=== PATIENT | female | born 1970 | race Caucasian/White ===

== ENCOUNTER → 2018-01-31 10:47 | Outpatient (CLI) | payer OTHER, SELFPAY ==
[2018-01-31 11:46] LABS: hCG Titer Quant., Serum 7 mIU/mL (<9 non-preg)
[2018-01-31 11:52] LABS: Progesterone Level 0.28 ng/mL (See Comment)
[2018-01-31 11:54] LABS: Estradiol < 11.0 pg/mL; Follicle Stimulating Hormone 113.1 mIU/mL; Free T3 2.7 pg/mL (2.18-3.98); T4 Free Direct 1.03 ng/dL (0.76-1.46)
[2018-02-02 14:31] LABS: HPV Reflexed? NOT INDICATED
== END ==
PROVIDERS: Family Provider Family Medicine; PCP Family Medicine; Visit Provider Obstetrics & Gynecology
DX: N91.1 Secondary amenorrhea (principal); Z12.4 Encounter for screening for malignant neoplasm of cervix
CPT/HCPCS: 36415; 82670; 83001; 83036; 84144; 84439; 84443; 84481; 84702; 88175; G0145

== ENCOUNTER → 2018-01-31 14:44 | Outpatient (CLI) | payer OTHER, SELFPAY ==
--- NOTE | 2018-01-31 14:49 | BI_ITS ---
MAMMOGRAPHY - BILATERAL SCREENING REASON FOR EXAM: Female, 47 years old. Routine annual screening examination. PERTINENT HISTORY: Non-contributory. TECHNIQUE: Digital bilateral breast julius (3D mammographic acquisition) in the CC and MLO projections. 2-D mediolateral oblique (MLO) and craniocaudad (CC) views of both breasts were obtained. CAD: Full Field Digital Mammography with Computer Added Detection was performed. COMPARISON: Comparison is made with prior study dated January 28, 2015 and June 29, 2016. FINDINGS: Breast Composition: The breasts are heterogeneously dense, which may obscure small masses. There are no dominant masses or suspicious calcifications. Stable bilateral benign-appearing axillary lymph nodes. No other significant abnormalities are identified. There has been no significant change since the prior study. BI/SCREENING MAMM (CAD), BILAT IMPRESSION: Stable bilateral screening mammogram. Yearly follow-up mammogram recommended. (A) ASSESSMENT CATEGORY: BIRADS Category 2: Benign. A letter regarding these results will be sent to the patient by the facility within 30 days. Approximately 10% of breast cancers are not detected by mammography. A normal mammogram should not delay biopsy of a clinically suspicious abnormality. [id number] Electronically Signed: Damian Oliveira MD at 16:05 EDT Tel [phone], Service support ,
== END ==
PROVIDERS: Family Provider Family Medicine; PCP Family Medicine; Visit Provider Obstetrics & Gynecology
DX: Z12.31 Encounter for screening mammogram for malignant neoplasm of breast (principal)
CPT/HCPCS: 77063; 77067

== ENCOUNTER → 2019-04-03 | Outpatient (CLI) | payer OTHER, SELFPAY ==
--- NOTE | 2019-04-03 08:33 | BI_ITS ---
MAMMOGRAPHY - BILATERAL SCREENING 3-D TOMOSYNTHESIS REASON FOR EXAM: Female, 48 years old. Bilateral Screening 3-D tomosynthesis PERTINENT HISTORY: No significant family history. TECHNIQUE: 2-D mammograms and 3-D Tomosynthesis of the breast (s) were performed. CAD was performed. COMPARISON: 01/31/2018 FINDINGS: The breast composition is heterogeneously dense that can obscure small breast masses. Scattered benign calcifications are seen. No dense spiculated masses or suspicious microcalcifications are identified. No architectural distortion is identified. There is no skin thickening or retraction. There has been no significant change since the prior study. BI/SCREEN MAMM (CAD) W/SIRI BILAT IMPRESSION: No mammographic signs of malignancy. Routine yearly mammograms recommended. ASSESSMENT CATEGORY: BIRADS Category 1: Negative. A letter regarding these results will be sent to the patient by the facility within 30 days. FOLLOW UP RECOMMENDATION: Yearly follow up mammogram recommended. (A) Approximately 10% of breast cancers are not detected by mammography. A normal mammogram should not delay biopsy of a clinically suspicious abnormality. Electronically Signed: Obie Alvarez MD at 9:58 EDT , Service support ,
[2019-04-09 14:24] LABS: HPV Reflexed? NOT INDICATED
== END | disposition home or self-care (01) ==
LOC: OPBI 08:31 → LABSPEC 11:05
PROVIDERS: Family Provider Family Medicine; PCP Family Medicine; Referring Provider Obstetrics & Gynecology; Visit Provider Obstetrics & Gynecology
DX: Z12.31 Encounter for screening mammogram for malignant neoplasm of breast (principal); Z12.4 Encounter for screening for malignant neoplasm of cervix
CPT/HCPCS: 77063; 77067; 88175; G0145

== ENCOUNTER 2020-01-16 09:44 | Emergency (ER) | payer OTHER, SELFPAY ==
[2020-01-16 09:45] VITALS: BP 140/92; PULSE 107; RESP 19; TEMP 36.3; O2SAT 100; BMI 29.5
--- NOTE | 2020-01-16 09:48 | NURSING ---
NO OLD EKGS
--- NOTE | 2020-01-16 10:13 | EKG12_ITS ---
Test Reason : CP Blood Pressure : / mmHG Vent. Rate : 096 BPM Atrial Rate : 096 BPM P-R Int : 114 ms QRS Dur : 072 ms QT Int : 338 ms P-R-T Axes : 041 054 031 degrees QTc Int : 427 ms Normal sinus rhythm Normal ECG Confirmed by JEANMARIE DE JESUS MD ([id number]), non linear editor BRYAN SANCHEZ ([id number]) on 01/20/2020 2:57:35 PM Referred By: SUNNI Confirmed By:JEANMARIE DE JESUS MD
[2020-01-16] MEDS: Aspirin 81 MG TAB.CHEW 324 MG PO (10:16)
--- NOTE | 2020-01-16 10:16 | ED.DCSUM_ITS ---
- ER Visit Summary Date of Service: 01/16/20 Chief Complaint: Chest pain History of Present Illness: The patient is a 49 F presenting with chest pain. She states this started 4 days ago. She states pain has been consistent throughout the day each day. States it waxes and wanes but never completely goes away. Currently it is 2/10 at worst it is 4/10. She states it is worsened with eating and coughing. It is relieved by remaining still. Her grandmother had an OR at age 57, no other CAD risk factors. No PE/DVT risk factors. No fever. No recent travel. No other complaints. Physical Examination: Vitals are stable. Patient is afebrile. Alert no acute distress. HEENT exam is unremarkable. Neck is supple. Lungs are clear and equal bilaterally. Heart is regular rate and rhythm. Abdomen is soft nontender nondistended. Extremities are unremarkable. Skin is warm and dry. No focal neurologic deficit. Remainder of exam is unremarkable. Emergency Department Course and Treatment: EKG is normal sinus rhythm rate 96 with no acute ischemic changes. Chest x-ray shows no acute process. CBC, chemistries unremarkable. Liver lipase are normal. Troponin is negative. Patient was given aspirin, GI cocktail. D-dimer 0.63. Due to elevated d-dimer, CTA chest was obtained and shows normal CTA chest examination, without a demonstrated pulmonary embolism or arterial dissection. Delta troponin was obtained and is negative. She was given Toradol IV with improvement. On reevaluation patient is resting comfortably. She does state that she has been under increased stress recently. She is advised to follow-up with her primary c are physician. Advised return to ED for worsening complaints. Disposition: Discharged home Impression: Atypical chest pain This note was generated with [employer] software. It may contain incorrect words, spelling, and punctuation that were not noted in review of the chart prior to signing ED Disposition - Plan for ED Patient: Instructions: ED Chest Pain Atypical Unkn Cause Referrals: Jame Strong DO [COURTESY STAFF PHYSICIAN] - Omid Geronimo MD [STAFF PHYSICIAN] -
[2020-01-16 10:17] VITALS: O2SAT 99
--- NOTE | 2020-01-16 10:25 | RAD_ITS ---
STUDY: X-RAY CHEST REASON FOR EXAM: Female, 49 years old. CP for couple days, pain radiates to left shoulder. TECHNIQUE: Single AP portable view of the chest. COMPARISON: None. FINDINGS: EKG electrodes are seen. The lungs are clear and expanded. There is no demonstrated pleural abnormality. Normal size heart. Normal mediastinum and dayan. Normal visualized pulmonary arteries. Normal visualized aortic arch and descending thoracic aorta. Normal visualized thoracic spine. Normal visualized ribs, clavicles, and shoulders. There is no demonstrated abnormality of the visualized soft tissue structures of the upper abdomen. RAD/Chest 1 View (Portable) IMPRESSION: Normal x-ray examination of the chest. Electronically Signed: Damian Oliveira, at 10:53 EDT , Service support ,
[2020-01-16 10:45] LABS: Absolute Lymphocyte Count 1.72 X10^3/uL (0.83-4.51); Absolute Neutrophil Count 4.7 X10^3/uL (2.0-7.7); Basophil# 0.05 X10^3/uL; Basophil% 0.7 % (0-1); Eosinophils% 2.7 % (0-5); Hematocrit 46.9 % (37-47); Hemoglobin 14.9 g/dL (12.0-15.0); Lymphocyte # 1.72 X10^3/ul (4.0); Lymphocyte % 23.2 % (19-41); Mean Corp Hgb Conc 31.8 g/dL (32-36); Mean Corpuscular Hgb 28.1 pg (27.0-32.0); Mean Corpuscular Volume 88.3 fL (81-99); Mean Platelet Vol. 11.4 fl (6.2-12.0); Monocyte# 0.72 X10^3/uL; Monocyte% 9.7 % (0-10); NRBC Flagged by Analyzer 0 % (0-5); Neutrophil # 4.67 X10^3/uL (2.7-7.7); Neutrophil % 62.9 % (47-70); Platelet Count 309 K/mm3 (150-450); RBC Distribution Width CV 13.1 % (11.6-14.6); RBC Distribution Width SD 41.7 fl (35.1-43.9); Red Blood Count 5.31 M/mm3 (4.2-5.4); White Blood Count 7.4 K/mm3 (4.4-11.0)
[2020-01-16 10:48] LABS: D-Dimer Quantitative (DVT/PE) 0.63 FEU/ug/m (0.27-0.49)
[2020-01-16 10:52] LABS: ALB/GLOB Ratio 0.9 RATIO (0.9-2.4); AST(SGOT) 28 U/L (15-37); Alanine Aminotransfer ALT/SGPT 43 U/L (13-56); Albumin, Serum 3.9 g/dL (3.2-5.0); Alkaline Phosphatase 94 U/L (45-117); Anion Gap 7 (5-15); BUN 12 mg/dL (7-18); BUN/Creat Ratio 14.4 RATIO (10-20); Calcium,Total 9.5 mg/dL (8.5-10.1); Chloride 104 mmol/L (98-107); Creatinine, Serum 0.84 mg/dL (0.55-1.02); EST Glomerular Filtration Rate 77 mL/min (>60); Est Glom Filt Rate - Afr Amer 93 mL/min (>60); Globulin 4.4 g/dL (2.2-4.2); Glucose 85 mg/dL (74-106); Lipase 370 U/L (73-393); Potassium 3.6 mmol/L (3.5-5.1); Protein, Total 8.3 g/dL (6.4-8.2); Sodium Level 140 mmol/L (136-145)
--- NOTE | 2020-01-16 11:15 | CT_ITS ---
STUDY: CTA CHEST REASON FOR EXAM: Female, 49 years old. Elevated ddimer, chest pain RADIATION DOSAGE (If Supplied By Facility): CTDIvol = ( 8.33 ) mGy, DLP = ( 322.09 ) mGycm TECHNIQUE: The examination was performed with the intravenous administration of 100ml isovue 370. Post-processing of the angiographic images was performed, with multiplanar reformation and 3D reconstruction. Individualized dose optimization techniques were used for this CT. COMPARISON: Comparison is made with prior chest radiograph done earlier today. FINDINGS: Normal enhancement of the main pulmonary artery and right and left pulmonary arteries. Normal enhancement of the bilateral peripheral pulmonary arteries. There is no demonstrated pulmonary embolism. Normal thoracic aorta and visualized great vessels. There is no demonstrated aortic dissection. Normal heart and pericardium. Normal mediastinum. Normal hilar regions. Normal visualized trachea and bronchi. The lungs are well expanded. Normal pulmonary parenchyma. Normal pleura. Normal chest wall structures. There are mild degenerative changes of thoracic spine. Small hiatal hernia. CT/CTA Chest W/WO Contrast IMPRESSION: Normal CTA chest examination, without a demonstrated pulmonary embolism or arterial dissection. Electronically Signed: Damian Oliveira, at 12:12 EDT , Service support ,
[2020-01-16 11:25] VITALS: PULSE 93; RESP 18; O2SAT 93
[2020-01-16] MEDS: Mag Hydrox/Al Hydrox/Simeth 30 ML UDC PO (11:25)
[2020-01-16] MEDS: Ketorolac 30 MG/ML Syringe IV (12:44)
--- NOTE | 2020-01-16 13:50 | ED.DEP ---
ED Disposition - Plan for ED Patient: Instructions: ED Chest Pain Atypical Unkn Cause Referrals: Jame Strong DO [COURTESY STAFF PHYSICIAN] - Omid Geronimo MD [STAFF PHYSICIAN] -
[2020-01-16 13:51] VITALS: PULSE 92; RESP 18; O2SAT 98
[2020-01-16 13:58] VITALS: BP 139/88; PULSE 83; RESP 18; O2SAT 98
== END 2020-01-16 14:08 | disposition home or self-care (01) ==
LOC: ED 11:15
PROVIDERS: Emergency Provider Emergency Medicine
DX: R07.89 Other chest pain (principal); R79.89 Other specified abnormal findings of blood chemistry
CPT/HCPCS: 36415; 71045; 71275; 80053; 83690; 84484; 85025; 85379; 93005; 96374; 99285; Q9967; A4216

== ENCOUNTER 2020-01-22 09:04 | Emergency (ER) | payer OTHER, SELFPAY ==
[2020-01-22 09:06] VITALS: BP 142/100; PULSE 98; RESP 18; TEMP 36.6; O2SAT 98; BMI 29.8
--- NOTE | 2020-01-22 09:08 | EKG12_ITS ---
Test Reason : CP Blood Pressure : / mmHG Vent. Rate : 112 BPM Atrial Rate : 112 BPM P-R Int : 116 ms QRS Dur : 080 ms QT Int : 332 ms P-R-T Axes : 066 052 024 degrees QTc Int : 453 ms Sinus tachycardia Otherwise normal ECG Confirmed by JACQUELINE THOMAS ([id number]), communications editor BRYAN SANCHEZ ([id number]) on 01/27/2020 1:27:15 PM Referred By: DENISE Confirmed By:JACQUELINE THOMAS
--- NOTE | 2020-01-22 09:29 | ED.DCSUM_ITS ---
- ER Visit Summary Date of Service: 01/22/20 Chief Complaint: Left upper chest pain History of Present Illness: The patient is a 49 F has medical history of psoriasis and endometriosis. No prior cardiac history. No history of DVT or PE. EKG. Patient states since January 09 she has had left upper chest discomfort. She describes it as a dull burning sensation. Not associated with exertion. No shortness of breath. Not pleuritic in nature. No hemoptysis. No leg pain or swelling. No recent travel, surgery or immobilization. Said she has been less active lately because currently she is off work due to the pandemic. No family history of clotting disorders or blood clots. No significant family history of cardiac disease. She was seen in this emergency department approximately 1 week ago had a negative cardiac work-up with 2- troponins. Negative EKG, negative chest x-ray. She had a slightly elevated d-dimer but a negative CTA. Nothing specifically makes the pain better or worse. She states is been constant. Is not changed by movement. Physical Examination: Middle-aged female no acute distress vital signs stable afebrile. Pulse ox 98% on room air no signs hypoxia. HEENT exam normal. Neck nontender no lymphadenopathy. Lungs clear to auscultation bilaterally. Heart regular rhythm rate about 95 no murmur. Chest wall nontender. There is no reproducible chest wall tenderness. Abdomen soft nontender. Patient moving all 4 extremities. Calves are nontender without edema or cords. Neurologically she is awake and alert with no focal motor deficits. Equal symmetrical radial pulses. Test Results: EKG shows sinus tachycardia rate of 112 with no signs of SD or ischemia. No S1 Q3 T3. No change from prior EKG last week. 1 view chest x-ray read by myself is normal. Normal cardiac silhouette. Normal mediastinum. No change from prior. CBC normal. Chemistries unremarkable. Troponin normal. Emergency Department Course and Treatment: Patient had extensive work-up last week. Including a negative CTA. Discussed with the patient says she has very little risk for PE. Other than her recent decreased activity she has no other risk factors nor family history. She is on no control or hormone replacement. Repeat exam patient is doing well at 9:58 AM. We went over all of her test results. She will be discharged outpatient follow-up. Treatment Plan: Follow-up with your primary care provider. Disposition: wi Impression: Acute chest pain uncertain etiology This note was generated with [employer] dictation software. It may contain incorrect words, spelling, and punctuation that were not noted in review of the chart prior to signing ED Disposition - Plan for ED Patient: Referrals: Care Physician,No Primary [Primary Care Provider] -
[2020-01-22 09:34] VITALS: O2SAT 99
[2020-01-22] MEDS: Aspirin 81 MG TAB.CHEW 324 MG PO (09:34)
[2020-01-22 09:38] LABS: Absolute Neutrophil Count 4.1 X10^3/uL (2.0-7.7); Basophil# 0.07 X10^3/uL; Basophil% 1.1 % (0-1); Eosinophil# 0.27 X10^3/uL; Eosinophils% 4.1 % (0-5); Hematocrit 43.2 % (37-47); Hemoglobin 13.6 g/dL (12.0-15.0); Mean Corp Hgb Conc 31.5 g/dL (32-36); Mean Corpuscular Hgb 27.6 pg (27.0-32.0); Mean Corpuscular Volume 87.6 fL (81-99); Mean Platelet Vol. 10.7 fl (6.2-12.0); Monocyte# 0.57 X10^3/uL; Monocyte% 8.7 % (0-10); NRBC Flagged by Analyzer 0 % (0-5); Neutrophil # 4.07 X10^3/uL (2.7-7.7); Neutrophil % 62.5 % (47-70); Platelet Count 269 K/mm3 (150-450); RBC Distribution Width CV 13.1 % (11.6-14.6); RBC Distribution Width SD 42.2 fl (35.1-43.9); Red Blood Count 4.93 M/mm3 (4.2-5.4); White Blood Count 6.5 K/mm3 (4.4-11.0)
--- NOTE | 2020-01-22 09:40 | RAD_ITS ---
STUDY: X-RAY CHEST REASON FOR EXAM: Female, 49 years old. CHEST PAIN SINCE January, SEEN LAST WEEK FOR THE SAME. CONCERN FOR BLOOD CLOT. STATES D-DIMER WAS ELEVATED LAST WEEK. TECHNIQUE: Single AP portable view of the chest. COMPARISON: Comparison is made with prior examination dated January 16, 2020. FINDINGS: EKG electrodes are seen. The lungs are clear and expanded. There is no demonstrated pleural abnormality. Normal size heart. Normal mediastinum and dayan. Normal visualized pulmonary arteries. Normal visualized aortic arch and descending thoracic aorta. Normal visualized thoracic spine. Normal visualized ribs, clavicles, and shoulders. There is no demonstrated abnormality of the visualized soft tissue structures of the upper abdomen. RAD/Chest 1 View (Portable) IMPRESSION: Normal x-ray examination of the chest. Electronically Signed: Damian Oliveira, at 10:03 EDT , Service support ,
[2020-01-22 09:56] LABS: Anion Gap 3 (5-15); BUN 14 mg/dL (7-18); BUN/Creat Ratio 14.8 RATIO (10-20); Calcium,Total 9.2 mg/dL (8.5-10.1); Chloride 109 mmol/L (98-107); Creatinine, Serum 0.94 mg/dL (0.55-1.02); EST Glomerular Filtration Rate 67 mL/min (>60); Est Glom Filt Rate - Afr Amer 81 mL/min (>60); Estimated Creatinine Clearance 55.23 ml/min; Glucose 88 mg/dL (74-106); Potassium 4.2 mmol/L (3.5-5.1); Sodium Level 143 mmol/L (136-145)
--- NOTE | 2020-01-22 09:59 | ED.DEP ---
ED Disposition - Plan for ED Patient: Disposition: Home or Assisted Living Instructions: ED Chest Pain Atypical Unkn Cause Referrals: Rakesh Nina, G[facility] [NON-STAFF] - As soon as possible Additional Instructions: Tylenol and Motrin for pain. This should progressively improve. Follow-up with your primary care provider. Clinically I think this is unlikely to be cardiac. He had a negative work-up for PE last week.
[2020-01-22 10:22] VITALS: BP 121/78; PULSE 68; RESP 17; O2SAT 99
== END 2020-01-22 10:25 | disposition home or self-care (01) ==
LOC: ED 10:09
PROVIDERS: Emergency Provider Emergency Medicine
DX: R07.89 Other chest pain (principal); L40.9 Psoriasis, unspecified; N80.9 Endometriosis, unspecified
CPT/HCPCS: 71045; 80048; 84484; 85025; 93005; 99285; A4216

== ENCOUNTER → 2020-04-20 | Outpatient (CLI) | payer OTHER, SELFPAY ==
[2020-04-20 10:07] VITALS: BMI 29.8
[2020-04-23 07:36] LABS: HPV APTIMA, High Risk Negative (Negative)
== END | disposition home or self-care (01) ==
LOC: LABSPEC 11:54
PROVIDERS: PCP Nurse Practitioner Family; Referring Provider Nurse Practitioner Women's Health; Visit Provider Nurse Practitioner Women's Health
DX: Z12.4 Encounter for screening for malignant neoplasm of cervix (principal)
CPT/HCPCS: 87624; 88175; G0145

== ENCOUNTER → 2020-04-29 07:32 | Outpatient (CLI) | payer OTHER, SELFPAY ==
[2020-04-20 10:07] VITALS: BMI 29.8
--- NOTE | 2020-04-29 07:33 | BI_ITS ---
MAMMOGRAPHY - BILATERAL SCREENING 3-D TOMOSYNTHESIS REASON FOR EXAM: Female, 49 years old. Annual screening mammogram. PERTINENT HISTORY: No significant family history. TECHNIQUE: 2-D mammograms and 3-D Tomosynthesis of the breast (s) were performed. CAD was performed. COMPARISON: 04/03/2019, 01/31/2018 FINDINGS: The breast composition is heterogeneously dense that can obscure small breast masses. Scattered benign calcifications are seen. No dense spiculated masses or suspicious microcalcifications are identified. No architectural distortion is identified. There is no skin thickening or retraction. Stable lymph nodes in both axillae. There has been no significant change since the prior study. BI/SCREEN MAMM (CAD) W/SIRI BILAT IMPRESSION: No mammographic signs of malignancy. Routine yearly mammograms recommended. ASSESSMENT CATEGORY: BIRADS Category 2: Benign. A letter regarding these results will be sent to the patient by the facility within 30 days. FOLLOW UP RECOMMENDATION: Yearly follow up mammogram recommended. (A) Approximately 10% of breast cancers are not detected by mammography. A normal mammogram should not delay biopsy of a clinically suspicious abnormality. Electronically Signed: Yovani Mullins MD at 15:40 EDT , Service support ,
== END ==
PROVIDERS: PCP Nurse Practitioner Family; Referring Provider Nurse Practitioner Women's Health; Visit Provider Nurse Practitioner Women's Health
DX: Z12.31 Encounter for screening mammogram for malignant neoplasm of breast (principal)
CPT/HCPCS: 77063; 77067

== ENCOUNTER → 2020-05-20 | Outpatient (CLI) | payer OTHER, SELFPAY ==
--- NOTE | 2020-05-20 | EMB_PTH ---
PATIENT: ELLIS BERTRAND LOC: [facility] U#:[id number] AGE/SX: 49/F ROOM: RE05/20/[address]: VIVIEN Ruffin : 1970 BED: DIS: 05/20/2020 SPEC #: [id number] RECD: 05/20/20 13:56 STATUS: TONY BRIELLE #: [id number] MURALI: 05/20/20 00:[address]: Lalitha Mariscal NP DEPT: SURGICAL PATHOLOGY RECD BY: Ford Cardona ENTERED: 05/20/20 13:56 SP TYPE: ENDOM BX/C OMAYRA DR: VIVIEN Serna Tissues: Endometrium, NOS Procedures: Surgery Specimen Level IV HEADER OPERATION: Endometrial biopsy PRE-OP DIAGNOSIS: Abnormal uterine bleeding TISSUE SUBMITTED: Endometrial biopsy MICROSCOPIC DIAGNOSIS Endometrial biopsy: Disordered proliferative endometrium. JEANIE:meli 05/21/20 MICROSCOPIC DESCRIPTION Slides are reviewed. GROSS DESCRIPTION Received is one container labeled with the patient's name and not further designated. The specimen consists of multiple irregular fragments of reddish-oliver soft tissue that in aggregate measure 2 x 2 x 0.1 cm. The specimen is totally submitted in one cassette. / AM:meli 05/20/20 TC:4 CPT: 58866
[2020-05-20 08:48] VITALS: BMI 28.1
== END | disposition home or self-care (01) ==
LOC: LABSPEC 12:34
PROVIDERS: PCP Nurse Practitioner Family; Referring Provider Nurse Practitioner Women's Health; Visit Provider Nurse Practitioner Women's Health
DX: N85.8 Other specified noninflammatory disorders of uterus (principal); N93.9 Abnormal uterine and vaginal bleeding, unspecified
CPT/HCPCS: 88305

== ENCOUNTER → 2021-05-07 13:12 | Outpatient (CLI) | payer OTHER, SELFPAY ==
[2020-05-20 08:48] VITALS: BMI 28.1
--- NOTE | 2021-05-07 13:12 | BI_ITS ---
MAMMOGRAPHY - BILATERAL SCREENING REASON FOR EXAM: Female, 50 years old. Routine annual screening examination. PERTINENT HISTORY: Non-contributory. TECHNIQUE: Digital bilateral breast siri (3D mammographic acquisition) in the CC and MLO projections. 2-D mediolateral oblique (MLO) and craniocaudad (CC) views of both breasts were obtained. CAD: Full Field Digital Mammography with Computer Added Detection was performed. COMPARISON: Comparison is made with prior examination 04/29/2020 and 04/03/2019. FINDINGS: Breast Composition: The breasts are heterogeneously dense, which may obscure small masses. There are no dominant masses or suspicious calcifications. No other significant abnormalities are identified. There has been no significant change since the prior study. BI/SCRN MAMM (CAD)W/SIRI BILAT IMPRESSION: Stable bilateral screening mammogram. Yearly follow-up mammogram recommended. (A) ASSESSMENT CATEGORY: BIRADS Category 1: Negative. A letter regarding these results will be sent to the patient by the facility within 30 days. Approximately 10% of breast cancers are not detected by mammography. A normal mammogram should not delay biopsy of a clinically suspicious abnormality. [id number] Electronically Signed: Damian Oliveira MD at 14:03 EDT , Service support ,
== END ==
PROVIDERS: PCP Nurse Practitioner Family; Referring Provider Nurse Practitioner Women's Health; Visit Provider Nurse Practitioner Women's Health
DX: Z12.31 Encounter for screening mammogram for malignant neoplasm of breast (principal)
CPT/HCPCS: 77063; 77067

== ENCOUNTER 2021-10-01 06:15 | Day surgery (SDC) | payer OTHER, SELFPAY ==
[2021-10-01] VITALS (9 sets, daily range): BP systolic 72–99; BP diastolic 44–63; PULSE 73–98; RESP 16; TEMP 36.3–37.1; O2SAT 94–100; BMI 25.8
[2021-10-01] MEDS: Lactated Ringers 1,000 ML 15 ML IV (07:12)
--- NOTE | 2021-10-01 07:21 | HP.PCM_ITS ---
HPI - General HPI Narrative ELLIS BERTRAND, is a 51 F who presents for screening colonoscopy. Patient has never had a colonoscopy in the past. She denies any family history of colon cancer. She denies any abdominal pain or blood in her stool. [facility] Medical History (Updated 10/01/21 @ 07:[address] Roldan Joiner MD) Arthritis Endometriosis History of hiatal hernia Infertility Non-smoker Post-menopausal Wears glasses Home Medications multivitamin 1 tab PO DAILY 04/20/20 [History Last Taken Unknown] calcium carbonate-vitamin D3 [Calcium 600 + D(3)] 1 tab PO BID 09/30/21 [History Last Taken Unknown] Allergy/AdvReac Type Severity Reaction Status Date / Time No Known Allergies Allergy Verified 10/01/21 06:47 Family History Grandmother Colon cancer Grandfather Heart disease Unknown Hypertension Surgical History (Updated 09/30/21 @ 09:00 by Neeru Gage) H/O laparoscopy History of wisdom tooth extraction Social History household members: spouse and children number of children: 1 current occupational status: employed current occupation: Dental Hygenist history of recent travel: No sexually active: Yes Smoking Status: Never smoker alcohol intake: current alcohol intake frequency: holidays/special occasions only substance use type: does not use what type of physical activity do you participate in: none seatbelt use: always do you feel safe at home: Yes additional social history: - Geoff Son - Ding - adopted Past Medical/Surgical History Planned Operation Planned Operative Procedure/s: colonoscopy Previous Hospitalizations/Surgeries HX Hospitalizations: No Any Problems With Anesthesia: Yes (trouble waking 1989) You/Your Family Experience Fever (Hyperthermia) With Anes: No Cholinesterase deficiency: No Cardiovascular Hx of Irregular Heartbeat and/or Afib: No Hx Heart Attack: No Hx Congestive Heart Failure: No Hx Hypertension: No Hx Pacemaker: No Respiratory Hx Chronic Obstructive Pulmonary Disease (COPD): No Hx Asthma: No Hx Emphysema: No Hx Sleep Apnea: No Hx Respiratory Tract Infection/Cold (presently): No Do You Snore Loudly (louder than talking or can be heard): No Do You Often Feel Tired/ Fatigued/ Sleepy Dring Daytime?: No Has Anyone Observed You Stop Breathing During Sleep?: No Result (for STOP score): Negative Smoking Status: Never smoker Gastrointestinal Hx Gastroesophageal Reflux: No Hx Ulcer: No Neurological Hx Seizures: No Hx Headaches: No Does patient have nerve stimulator: No Reproduction : No Miscellaneous Recent Exposure to Contagious Disease: No Allergies No Known Allergies Allergy (Verified 10/01/21 06:47) Discharge Is Pt Admitted From a Long Term, or a Correction: No Who Could Help: After D/C, Where Do you Plan to Go: Return Home Vital Signs Vital Signs Vital Signs: 10/01/21 06:44 Temperature 97.3 F L Temperature Source Temporal Pulse Rate 84 Respiratory Rate 16 Respiratory Pattern Normal Blood Pressure 99/61 Blood Pressure Mean 73 Blood Pressure Source Monitor Blood Pressure Position Sitting Blood Pressure Location Right Arm Pulse Ox 99 Oxygen Delivery Method Room Air Weight Weight: 136 lb 10.986 oz Body Mass Index (BMI) 25.8 Physical Exam Const alert and oriented x3 Resp normal respiratory effort and normal air movement Cardio regular rate and regular rhythm GI soft to palpation, non-tender and non-distended Assessment & Plan Assessment/Plan (1) Screen for colon cancer: PLAN: I explained endoscopy in detail to the patient. I explained the risks including but not limited to stroke or heart attack with anesthesia, perforation of the GI tract, bleeding, infection. I explained that any of these could necessitate further emergency surgery. The patient understands and all questions were answered sufficiently. The patient wishes to proceed with procedure. Roldan Joiner MD Pager: [facility] [address] [place] [address] [address] [place] [address] Office: Surgery Risks - Colonoscopy Risks Include but are not Limited To: Risks include but are not limited to: Bleeding, perforation requiring further surgery, inability to complete colonoscopy requiring barium enema.
--- NOTE | 2021-10-01 07:46 | OP.COLON_ITS ---
Patient Name: Blanche Soler Procedure Date: 10/01/2021 7:10 AM Date of : 1970 Age: 51 Procedure: Colonoscopy Indications: Screening for colorectal malignant neoplasm Providers: Roldan Joiner MD Referring MD: Roldan Joiner MD Medicines: Monitored Anesthesia Care Patient Profile: This is a 51 year old female. Refer to note in patient chart for documentation of history and physical. Last Colonoscopy: none. The patient's first colonoscopy is today. Complications: No immediate complications. Procedure: Pre-Anesthesia Assessment: - Prior to the procedure, a History and Physical was performed, and patient medications and allergies were reviewed. The patient's tolerance of previous anesthesia was also reviewed. The risks and benefits of the procedure and the sedation options and risks were discussed with the patient. All questions were answered, and informed consent was obtained. Prior Anticoagulants: The patient has taken no previous anticoagulant or antiplatelet agents. After reviewing the risks and benefits, the patient was deemed in satisfactory condition to undergo the procedure. After I obtained informed consent, the scope was passed under direct vision. Throughout the procedure, the patient's blood pressure, pulse, and oxygen saturations were monitored continuously. The colonoscope was introduced through the anus and advanced to the cecum, identified by appendiceal orifice and ileocecal valve. The colonoscopy was performed without difficulty. The patient tolerated the procedure well. The quality of the bowel preparation was good. Scope In: 7:30:16 AM Scope Withdrawal Time 0 hours 5 minutes 59 seconds Scope Out: 7:42:14 AM Total Procedure Duration Time 0 hours 11 minutes 58 seconds Findings: The entire examined colon appeared normal on direct and retroflexion views. Impression: - The entire examined colon is normal on direct and retroflexion views. - No specimens collected. Recommendation: - Discharge patient to home. - Resume previous diet. - Continue present medications. - Repeat colonoscopy in 10 years for screening purposes. Procedure Code(s): --- Professional --- 55566, Colonoscopy, flexible; diagnostic, including collection of specimen(s) by brushing or washing, when performed (separate procedure) Diagnosis Code(s): --- Professional --- Z12.11, Encounter for screening for malignant neoplasm of colon CPT copyright 2017 [employer]. All rights reserved. The codes documented in this report are preliminary and upon filler mixer review may be revised to meet current compliance requirements. Roldan Joiner MD 10/01/2021 7:46:24 AM This report has been signed electronically. Number of Addenda: 0 Note Initiated On: 10/01/2021 7:10 AM
--- NOTE | 2021-10-01 07:47 | OP.CCLET_ITS ---
10/01/2021 Rakesh Nina Re : Colonoscopy procedure for Blanche Soler Dear Kelle This procedure was performed on Friday, October 01, 2021. My impressions and recommendations are as follows: Impressions : - The entire examined colon is normal on direct and retroflexion views. - No specimens collected. Recommendations : - Discharge patient to home. - Resume previous diet. - Continue present medications. - Repeat colonoscopy in 10 years for screening purposes. My findings are described in the full procedure note, which is enclosed. If I can be of further assistance, please feel free to contact me at Doctor phone number(s): , Work: . Sincerely, Roldan Joiner MD 10/01/2021 7:46:24 AM This report has been signed electronically.
== END 2021-10-01 23:59 | disposition home or self-care (01) ==
LOC: EN 06:24 → AC 06:25
PROVIDERS: PCP Nurse Practitioner Family; Referring Provider Surgery; Visit Provider Surgery
PROC: 0DJD8ZZ Inspection of Lower Intestinal Tract, Via Natural or Artificial Opening Endoscopic (ICD-10-PCS; CPT 45378; principal; 2021-10-01 07:25)
DX: Z12.11 Encounter for screening for malignant neoplasm of colon (principal); Z80.0 Family history of malignant neoplasm of digestive organs; Z20.822 Contact with and (suspected) exposure to COVID-19
CPT/HCPCS: 45378; 87426; C9803; J7120; J2405

== ENCOUNTER → 2022-05-09 | Outpatient (CLI) | payer OTHER, SELFPAY ==
--- NOTE | 2022-05-09 07:46 | BI_ITS ---
MAMMOGRAPHY - BILATERAL SCREENING REASON FOR EXAM: Female, 51 years old. Routine annual screening examination. PERTINENT HISTORY: Non-contributory. TECHNIQUE: Digital bilateral breast siri (3D mammographic acquisition) in the CC and MLO projections. 2-D mediolateral oblique (MLO) and craniocaudad (CC) views of both breasts were obtained. CAD: Full Field Digital Mammography with Computer Added Detection was performed. COMPARISON: Comparison is made with prior study dated 05/07/2021 and 04/29/2020. FINDINGS: Breast Composition: The breasts are heterogeneously dense, which may obscure small masses. There are no dominant masses or suspicious calcifications. Stable small benign appearing bilateral axillary lymph nodes. No other significant abnormalities are identified. There has been no significant change since the prior study. BI/SCRN MAMM (CAD)W/SIRI BILAT IMPRESSION: Stable bilateral screening mammogram. Yearly follow-up mammogram recommended. (A) ASSESSMENT CATEGORY: BIRADS Category 2: Benign. A letter regarding these results will be sent to the patient by the facility within 30 days. Approximately 10% of breast cancers are not detected by mammography. A normal mammogram should not delay biopsy of a clinically suspicious abnormality. [id number] Electronically Signed: Damian Oliveira MD at 8:34 EDT ,
[2022-05-09 09:00] LABS: Cholesterol 227 mg/dL (200); Glucose 87 mg/dL (74-106); High Density Lipoprotein 64 mg/dL; Thyroid Stim Hormone (TSH) 1.73 uIU/mL (0.358-3.74); Triglycerides 150 mg/dL; Very Low Density Lipoprotein 30 mg/dL (5-40)
[2022-05-09 09:09] LABS: Vitamin D,25 Hydroxy 38.8 ng/mL
== END | disposition home or self-care (01) ==
PROVIDERS: PCP Nurse Practitioner Family; Referring Provider Nurse Practitioner Women's Health; Visit Provider Nurse Practitioner Women's Health
DX: Z12.31 Encounter for screening mammogram for malignant neoplasm of breast (principal); Z13.1 Encounter for screening for diabetes mellitus; Z13.220 Encounter for screening for lipoid disorders; Z13.21 Encounter for screening for nutritional disorder; Z13.29 Encounter for screening for other suspected endocrine disorder
CPT/HCPCS: 36415; 77063; 77067; 80061; 82306; 82947; 84443

== ENCOUNTER → 2023-02-25 | Outpatient (CLI) | payer OTHER, SELFPAY | END | disposition home or self-care (01) | PROVIDERS: PCP Nurse Practitioner Family; Visit Provider Otolaryngology | DX: J03.90 Acute tonsillitis, unspecified (principal) | CPT/HCPCS: 87070 ==

== ENCOUNTER → 2023-05-10 | Outpatient (CLI) | payer BC, SELFPAY ==
--- NOTE | 2023-05-10 14:34 | BI_ITS ---
MAMMOGRAPHY - BILATERAL SCREENING REASON FOR EXAM: Female, 52 years old. Routine annual screening examination. PERTINENT HISTORY: Non-contributory. TECHNIQUE: Digital bilateral breast siri (3D mammographic acquisition) in the CC and MLO projections. 2-D mediolateral oblique (MLO) and craniocaudad (CC) views of both breasts were obtained. CAD: Full Field Digital Mammography with Computer Added Detection was performed. COMPARISON: Comparison is made with prior study May 09, 2022 and May 07, 2021. FINDINGS: Breast Composition: The breasts are heterogeneously dense, which may obscure small masses. There are no dominant masses or suspicious calcifications. Stable small benign-appearing bilateral axillary lymph nodes. No other significant abnormalities are identified. There has been no significant change since the prior study. BI/SCRN MAMM (CAD)W/SIRI BILAT IMPRESSION: Stable bilateral screening mammogram. Yearly follow-up mammogram recommended. (A) ASSESSMENT CATEGORY: BIRADS Category 2: Benign. A letter regarding these results will be sent to the patient by the facility within 30 days. Approximately 10% of breast cancers are not detected by mammography. A normal mammogram should not delay biopsy of a clinically suspicious abnormality. [id number] Electronically Signed: Damian Oliveira MD at 15:26 EDT ,
== END | disposition home or self-care (01) ==
LOC: OPBI 14:33
PROVIDERS: PCP Nurse Practitioner Family; Referring Provider Nurse Practitioner Women's Health; Visit Provider Nurse Practitioner Women's Health
DX: Z12.31 Encounter for screening mammogram for malignant neoplasm of breast (principal)
CPT/HCPCS: 77063; 77067

== ENCOUNTER → 2024-05-22 | Outpatient (CLI) | payer BC, SELFPAY ==
--- NOTE | 2024-05-22 09:16 | BI_ITS ---
MAMMOGRAPHY - BILATERAL SCREENING REASON FOR EXAM: Female, 53 years old. Routine annual screening examination. PERTINENT HISTORY: Non-contributory. TECHNIQUE: Digital bilateral breast siri (3D mammographic acquisition) in the CC and MLO projections. 2-D mediolateral oblique (MLO) and craniocaudad (CC) views of both breasts were obtained. CAD: Full Field Digital Mammography with Computer Added Detection was performed. COMPARISON: Comparison is made with prior study dated May 10, 2023 and May 09, 2022. FINDINGS: Breast Composition: The breasts are heterogeneously dense, which may obscure small masses. There are no dominant masses or suspicious calcifications. Stable bilateral fat containing axillary lymph nodes. No other significant abnormalities are identified. There has been no significant change since the prior study. BI/SCRN MAMM (CAD)W/SIRI BILAT IMPRESSION: Stable bilateral screening mammogram. Yearly follow-up mammogram recommended. (A) ASSESSMENT CATEGORY: BIRADS Category 2: Benign. A letter regarding these results will be sent to the patient by the facility within 30 days. Approximately 10% of breast cancers are not detected by mammography. A normal mammogram should not delay biopsy of a clinically suspicious abnormality. [id number] Electronically Signed: Damian Oliveira MD at 10:17 EDT ,
== END | disposition home or self-care (01) ==
LOC: OPBI 09:16
PROVIDERS: PCP Nurse Practitioner Family; Referring Provider Nurse Practitioner Women's Health; Visit Provider Nurse Practitioner Women's Health
DX: Z12.31 Encounter for screening mammogram for malignant neoplasm of breast (principal)
CPT/HCPCS: 77063; 77067

== ENCOUNTER → 2025-05-21 | Outpatient (CLI) | payer BC, SELFPAY ==
[2025-05-26 15:08] LABS: HPV APTIMA, High Risk Negative (Negative)
== END | disposition home or self-care (01) ==
LOC: LABSPEC 14:09
PROVIDERS: PCP Nurse Practitioner Family; Referring Provider Nurse Practitioner Women's Health; Visit Provider Nurse Practitioner Women's Health
DX: Z12.4 Encounter for screening for malignant neoplasm of cervix (principal)
CPT/HCPCS: 87624; 88175; G0145

== ENCOUNTER → 2025-05-23 | Outpatient (CLI) | payer BC, SELFPAY ==
--- OUTSIDE RECORDS SUMMARY | 2025-05-23 07:03 | XMS RPT_ITS | CCD ---
Author Organization [facility] CliniSyde Care Team Providers Care Sock Boarder Name Role Phone Kelle PSYCHOLOGIST COUNSELING, PSYCHOLOGIST COUNSELING-C Rakesh Rust Primary Care Pr ovider Kelle PSYCHOLOGIST COUNSELING, PSYCHOLOGIST COUNSELING-C Rakesh Rust Referring Provi radha Davey PSYCHOLOGIST COUNSELING, PSYCHOLOGIST COUNSELING-C Lalitha Attending Provider KELLE FINANCIAL RECRUITER - MANAGER OF PRODUCT, RAKESH Green Primary Care Phys ician KELLE FINANCIAL RECRUITER - MANAGER OF PRODUCT, RAKESH Green Attending U navailable KELLE FINANCIAL RECRUITER - MANAGER OF PRODUCT, RAKESH Green Primary Care U navailable KELLE FINANCIAL RECRUITER - MANAGER OF PRODUCT, RAKESH Green Attending U navailable KELLE FINANCIAL RECRUITER - MANAGER OF PRODUCT, RAKESH Green Primary Care U navailable KELLE FINANCIAL RECRUITER - MANAGER OF PRODUCT, RAKESH Green Attending U navailable KELLE FINANCIAL RECRUITER - MANAGER OF PRODUCT, RAKESH Green Primary Care U navailable KELLE FINANCIAL RECRUITER - MANAGER OF PRODUCT, RAKESH Green Attending U navailable KELLE FINANCIAL RECRUITER - MANAGER OF PRODUCT, RAKESH Green Primary Care U navailable SARAH BERRY Attending Unavailable KELLE FINANCIAL RECRUITER - MANAGER OF PRODUCT, RAKESH Green Primary Care U navailable Kelle PSYCHOLOGIST COUNSELING-C, Rakesh Rust Primary Care Provi radha Kelle PSYCHOLOGIST COUNSELING-C, Rakesh Rust Referring Provider Nani CHEN-C, Tia Attending Provider [phone] Kelle PSYCHOLOGIST COUNSELING, Rakesh Rust Primary Care Unav ailable Davey PSYCHOLOGIST COUNSELING, Lalitha Attending Unavailable [place] PSYCHOLOGIST COUNSELING, Lalitha Referring Unavailable [place] PSYCHOLOGIST COUNSELING, Lalitha Attending Unavailable [place] PSYCHOLOGIST COUNSELING, Lalitha Referring Unavailable Kelle PSYCHOLOGIST COUNSELING, Rakesh Rust Primary Care Unav ailable Davey PSYCHOLOGIST COUNSELING, Lalitha Attending Unavailable [place] PSYCHOLOGIST COUNSELING, Lalitha Referring Unavailable [place] PSYCHOLOGIST COUNSELING, Rakesh Rust Primary Care Unav ailable Kelle PSYCHOLOGIST COUNSELING, Rakesh Rust Referring Unav ailable Tia Cardoza Attending Unavailable Kelle PSYCHOLOGIST COUNSELING, Rakesh Rust Primary Care Unav ailable Medications Current Medications Medication Drug Class(es) Dates Sig (Normalized) Sig (Original) calcium carbonate 1500 mg / cholecalciferol 200 unt oral tablet (4 sources) Vitamin D Start: 09-30-2021 Calcium Carbonate-Vitamin D3 (Calcium 600 + D(3)) 600 mg-5 mcg (200 unit) Tablet Active 1 {tbl} PO TWICE A DAY September 30, 2021 1:00am calcium citrate 1040 mg oral tablet (4 sources) Start: 01-23-2020 calcium (as calcium citrate) 250 mg oral tablet Dose : 250 mg = 1 tab(s), Oral, Daily, # 180 tab(s), 0 Refill(s) Start Date: 01/23/20 Status: Ordered Quantity: 180.0 Unit: tab(s) Repeat number: 1 cetirizine hydrochloride 10 mg oral tablet (6 sources) Histamine-1 Receptor Antagonist Start: 11-06-2024 Zyrtec 10 mg oral tablet Dose : 10 mg = 1 tab(s), Oral, qDay, 0 Refill(s) Start Date: 11/06/24 Status: Ordered Repeat number: 1 Start: 04-20-2020 End: 04-28-2021 take 1 capsule by mouth once daily Cetirizine (Zyrtec) 10 mg capsule Discontinued 10 mg PO DAILY April 20, 2020 12:00am April 28, 2021 8:07am levocetirizine dihydrochloride 5 mg oral tablet (2 sources) Histamine-1 Receptor Antagonist Start: 04-29-2024 End: 10-26-2024 Xyzal 5 mg oral tablet Dose : 5 mg = 1 tab(s), Oral, qHS, # 90 tab(s), 1 Refill(s), Pharmacy: [facility]/pharmacy #[id number], Seasonal allergies, 153, cm, 04/29/24 6:59:00 EDT, Height, kg, 04/29/24 6:59:00 EDT, Dosing Weight Start Date: 04/29/24 Stop Date: 10/26/24 Status: Ordered Start: 10-30-2023 End: 04-27-2024 Xyzal 5 mg oral tablet Dose : 5 mg = 1 tab(s), Oral, qHS, # 90 tab(s), 1 Refill(s), Pharmacy: [facility]/pharmacy #[id number], Seasonal allergies, 153, cm, 10/30/23 9:28:00 EST, Height, kg, 10/30/23 9:28:00 EST, Dosing Weight Start Date: 10/30/23 Stop Date: 04/27/24 Status: Ordered Multi-Day Plus Minerals oral tablet (4 sources) Start: 01-23-2020 take 1 tablet by mouth once daily Multi-Day Plus Minerals oral tablet Dose = 1 tab(s), Oral, Daily, # 30 tab(s), 0 Refill(s) Start Date: 01/23/20 Status: Ordered Quantity: 30.0 Unit: tab(s) Repeat number: 1 Start: 01-23-2020 take 1 tablet by jazzmine th once daily Multi-Day Plus Minerals oral tablet Dose = 1 tab(s), Oral, Daily, # 30 tab(s), 0 Refill(s) Start Date: 01/23/20 Status: Ordered Multivitamin preparation (3 sources) Start: 04-20-2020 take 1 tablet by mouth once daily Multivitamin Active 1 TABLET PO DAILY April 20, 2020 12:00am Multivitamin tablet (1 source) Start: 04-20-2020 Multivitamin t ablet Active 1 {tbl} PO DAILY April 20, 2020 12:00am rosuvastatin calcium 5 mg oral tablet (4 sources) HMG-CoA Reductase Inhibitor Start: 11-11-2024 End: 05-10-2025 rosuvastatin 5 mg oral tablet Dose : 5 mg = 1 tab(s), Oral, qDay, # 90 tab(s), 1 Refill(s), Pharmacy: [facility]/pharmacy #[id number], Hypercholesteremia, 156.5, cm, 11/06/24 11:17:00 EST, Height, kg, 11/06/24 11:17:00 EST, Dosing Weight Start Date: 11/11/24 Stop Date: 05/10/25 Status: Ordered Quantity: 90.0 Unit: tab(s) Repeat number: 2 Indications: Pure hypercholesterolemi a, unspecified; Start: 04-29-2024 End: 02-15-2025 rosuvastatin 5 mg oral table t Dose : 5 mg = 1 tab(s), Oral, qDay, # 90 tab(s), 1 Refill(s), [id number], Hypercholesteremia, 153, cm, 04/29/24 6:59:00 EDT, Height, kg, 04/29/24 6:59:00 EDT, Dosing Weight Start Date: 04/29/24 Stop Date: 10/26/24 Status: Ordered Quantity: 90.0 Unit: tab(s) Repeat number: 2 Indication: Pure hypercholesterolemia, unspecified Start: 10-30-2023 End: 04-27-2024 rosuvastatin 5 mg oral table t Dose : 5 mg = 1 tab(s), Oral, qDay, # 90 tab(s), 1 Refill(s), [id number], Hypercholesteremia, 153, cm, 10/30/23 9:28:00 EST, Height, kg, 10/30/23 9:28:00 EST, Dosing Weight Start Date: 10/30/23 Stop Date: 04/27/24 Status: Ordered Completed/Discontinued Medications Medication Drug Class(es) Dates Sig (Normalized) Sig (Original) augmented betamethasone 0.5 mg/ml topical cream (4 sources) Corticosteroid Start: 08-26-2024 betamethasone dipropionate, augmented 0.05% topical cream Apply 1 bolivar, Topical, BID, # 45 gram(s), 3 Refill(s), [id number], Cream, 156, cm, 08/26/24 7:50:00 EST, Height, 69.8, kg, 08/26/24 7:50:00 EST, Dosing Weight Start Date: 08/26/24 Status: Ordered Quantity: 45.0 Unit: g Repeat number: 4 Start: 04-29-2024 End: 07-22-2024 betamethasone dipropionate, augmented 0.05% topical ointment Apply 1 bolivar, Topical, BID, # 50 gram(s), 5 Refill(s), [id number], Ointment, 153, cm, 04/29/24 6:59:00 EDT, Height, 72.1, kg, 04/29/24 6:59:00 EDT, Dosing Weight Start Date: 04/29/24 Stop Date: 07/22/24 Status: Ordered Start: 10-30-2023 End: 01-22-2024 betamethasone dipropionate, augmented 0.05% topical ointment Apply 1 bolivar, Topical, BID, # 50 gram(s), 5 Refill(s), Pharmacy: [facility]/pharmacy #[id number], Ointment, 153, cm, 10/30/23 9:28:00 EST, Height, 72.2, kg, 10/30/23 9:28:00 EST, Dosing Weight Start Date: 10/30/23 Stop Date: 01/22/24 Status: Ordered medroxyPROGESTERone acetate 10 mg oral tablet (4 sources) Progestin Start: 05-21-2020 End: 04-28-2021 take 1 tablet by mouth once daily Medroxyprogesterone (Provera) 10 mg tablet Discontinued 10 mg PO DAILY 10 3 May 21, 2020 12:00am April 28, 2021 8:07am Problems Active Problems Problem Classification Problem Date Documented Date Episodic/Chronic Abdominal hernia (4 sources) Hiatal hernia 01-23-2020 Episodic Allergic reactions (4 sources) Adult atopic dermatitis 10-30-2023 Chronic Disorders of lipid metabolism (7 sources) Hypercholesterolemia; Translations: [Pure hypercholesterolemia, unspecified] 05-08-2023 Chronic Endometriosis (4 sources) Endometriosis (clinical); Translations: [Endometriosis, unspecified] 04-20-2020 Chronic Comment on above: 3 hx of lap Menopausal disorders (4 sources) Postmenopausal bleeding; Translations: [Postmenopausal bleeding] 05-04-2022 Chronic Comment on above: EMB pending Nutritional deficiencies (3 sources) Vitamin D deficiency 04-29-2024 Chronic Other screening for suspected conditions (not mental disorders or infectious disease) (2 sources) Encounter for screening mammogram for malignant neoplasm of breast; Translations: [Encounter for screening mammogram for malignant neoplasm of breast] Onset: 06-10-2024 Episodic Other upper respiratory disease (4 sources) Seasonal allergy 01-23-2020 Chronic Residual codes; unclassified (4 sources) Increased body mass index 01-23-2020 Episodic Unclassified (4 sources) Cancer cervix screening status 08-21-2023 Unclassified (20 sources) Patient encounter status 08-21-2023 Unclassified (3 sources) Non-smoker 04-29-2024 Past or Other Problems Problem Classification Problem Date Documented Da te Episodic/Chronic Genitourinary symptoms and ill-defined conditions (4 sources) Dysuria; Translations: [Dysuria] Onset: 11-06-2024 11-06-2024 Episodic Results Test Name Value Interpretation Reference Range Facility .GFRon 02-19-2025 Estimated Glomerular Filtration Rate 94 ml/min/1.73sqm Normal [facility] Comment on above: Result Comment: Stages of Chronic Kidney Disease (CKD) Stage Description eGFR(ml/min/1.73 sq.m.) CKD 1 Normal kidney function or >=90 normal kindney function with possible kidney damage (ex. Proteinuria) CKD 2 Kidney damage with mild loss 60-89 of kidney function CKD 3a Mild to moderate loss of kidney 45-59 function CKD 3b Moderate to severe loss of 30-44 of kindey function CKD 4 Severe loss of kidney function 15-29 CKD 5 Kidney failure <15 Note: (go live 2024) the eGFR calculation was updated to the 2020 CKD-EPI creatinine equation without a race factor to calculate the eGFR results. Performed By: #### C MP, VIDH, LIPID, GFR #### [address] [place], [place] [address] CMPon 02-19-2025 Albumin Level 3.4 G/dL Low 3.5-5.0 [facility] Comment on above: Performed By: #### C MP, VIDH, LIPID, GFR #### [address] [place], [place] [address] Albumin/Globulin [Mass ratio] 0.8 {ratio} Low 1.1-2.5 [facility] Comment on above: Performed By: #### C MP, VIDH, LIPID, GFR #### [address] [place], [place] [address] ALP [Catalytic activity/Vol] 81 U/L Normal 40-135 [facility] Comment on above: Performed By: #### C MP, VIDH, LIPID, GFR #### [address] [place], [place] [address] ALT [Catalytic activity/Vol] 47 U/L Normal 14-59 [facility] Comment on above: Performed By: #### C MP, VIDH, LIPID, GFR #### [address] [address] AST [Catalytic activity/Vol] 34 U/L Normal 10-40 [facility] Comment on above: Performed By: #### C MP, VIDH, LIPID, GFR #### [address] [address] Bili Total 0.6 mg/dL Normal 0.2-1.0 [facility] Comment on above: Result Comment: Use of this assay is not recommended for patients undergoing treatment with eltrombopag due to the potential for falsely elevated results. Performed By: #### C MP, VIDH, LIPID, GFR #### [place] [address] BUN/Creatinine Ratio 17 ratio Normal 7-27 [facility] Comment on above: Performed By: #### C MP, VIDH, LIPID, GFR #### [address] [address] Calcium [Mass/Vol] 9.3 mg/dL Normal 8.4-10.2 [facility] Comment on above: Performed By: #### C MP, VIDH, LIPID, GFR #### [address] [address] Chloride [Moles/Vol] 108 mmol/L High 98-107 [facility] Comment on above: Performed By: #### C MP, VIDH, LIPID, GFR #### [address] [address] CO2 [Moles/Vol] 30 mmol/L High 22-29 [facility] Comment on above: Performed By: #### C MP, VIDH, LIPID, GFR #### [address] [address] Creatinine [Mass/Vol] 0.76 mg/dL Normal 0.51-0.95 [facility] Comment on above: Performed By: #### C MP, VIDH, LIPID, GFR #### [address] [address] Electrolyte Balance 7.0 mEq/L Normal 4.0-15.0 [facility] Comment on above: Performed By: #### C MP, VIDH, LIPID, GFR #### [address] [address] Globulin 4.0 G/dL Normal 2.7-4.4 [facility] Comment on above: Performed By: #### C MP, VIDH, LIPID, GFR #### [address] [address] Glucose [Mass/Vol] 79 mg/dL Normal 70-105 [facility] Comment on above: Performed By: #### C MP, VIDH, LIPID, GFR #### [address] [address] Potassium [Moles/Vol] 4.4 mmol/L Normal 3.5-5.1 [facility] Comment on above: Performed By: #### C MP, VIDH, LIPID, GFR #### [address] [address] Sodium [Moles/Vol] 145 mmol/L Normal 136-145 [facility] Comment on above: Performed By: #### C MP, VIDH, LIPID, GFR #### [address] [address] Total Protein 7.4 G/dL Normal 6.4-8.2 [facility] Comment on above: Performed By: #### C MP, VIDH, LIPID, GFR #### [address] [address] Urea nitrogen [Mass/Vol] 13 mg/dL Normal 7-18 [facility] Comment on above: Performed By: #### C MP, VIDH, LIPID, GFR #### [address] [address] LABORATORYOrdered By: SYSTEM SYSTEM on 02-19-2025 25-hydroxyvitamin D3 [Mass/Vol] 33.9 ng/mL Invalid Interpretation Code AO ADM SS Comment on above: Interpretive Data: I nterpretive Values Based on Total 25(OH) Vitamin D: Deficient <20 ng/mL Insufficient 20 - <30 ng/mL Sufficient 30-100 ng/mL Albumin BCP dye [Mass/Vol] 3.4 G/dL Low 3.5 - 5.0 G/dL AO ADM SS Albumin/Globulin [Mass ratio] 0.8 {ratio} Low 1.1 - 2.5 ratio AO ADM SS ALP [Catalytic activity/Vol] 81 U/L Normal 40 - 135 U/L AO ADM SS ALT With P-5'-P [Catalytic activity/Vol] 47 U/L Normal 14 - 59 U/L AO ADM SS AST With P-5'-P [Catalytic activity/Vol] 34 U/L Normal 10 - 40 U/L AO ADM SS Bilirubin [Mass/Vol] 0.6 mg/dL Normal 0.2 - 1 .0 mg/dL AO ADM SS Comment on above: Interpretive Data: U se of this assay is not recommended for patients undergoing treatment with eltrombopag due to the potential for falsely elevated results. Calcium [Mass/Vol] 9.3 mg/dL Normal 8.4 - 10. 2 mg/dL AO ADM SS Chloride [Moles/Vol] 108 mmol/L High 98 - 10 7 mmol/L AO ADM SS CO2 [Moles/Vol] 30 mmol/L High 22 - 29 mmol/L AO ADM SS Creatinine [Mass/Vol] 0.76 mg/dL Normal 0.51 - 0.95 mg/dL AO ADM SS Electrolyte Balance 7.0 mEq/L Normal 4.0 - 15 .0 mEq/L AO ADM SS Estimated Glomerular Filtration Rate 94 ml/min/1.73sqm Invalid Interpretation Code AO Chemistry S Comment on above: Interpretive Data: Stages of Chronic Kidney Disease (CKD) Stage Description eGFR(ml/min/1.73 sq.m.) CKD 1 Normal kidney function or >=90 normal kindney function with possible kidney damage (ex. Proteinuria) CKD 2 Kidney damage with mild loss 60-89 of kidney function CKD 3a Mild to moderate loss of kidney 45-59 function CKD 3b Moderate to severe loss of 30-44 of kindey function CKD 4 Severe loss of kidney function 15-29 CKD 5 Kidney failure <15 Note: (go live 2024) the eGFR calculation was updated to the 2020 CKD-EPI creatinine equation without a race factor to calculate the eGFR results. Globulin 4.0 G/dL Normal 2.7 - 4.4 G/dL AO ADM SS Glucose [Mass/Vol] 79 mg/dL Normal 70 - 105 mg/dL AO ADM SS Potassium [Moles/Vol] 4.4 mmol/L Normal 3.5 - 5.1 mmol/L AO ADM SS Protein [Mass/Vol] 7.4 G/dL Normal 6.4 - 8.2 G/dL AO ADM SS Sodium [Moles/Vol] 145 mmol/L Normal 136 - 145 mmol/L AO ADM SS Urea nitrogen [Mass/Vol] 13 mg/dL Normal 7 - 18 mg/dL AO ADM SS Urea nitrogen/Creatinine [Mass ratio] 17 ratio Normal 7 - 27 ratio AO ADM SS LABORATORYOrdered By: Mariola Pereyra on 02-19-2025 Cholesterol [Mass/Vol] 164 mg/dL Normal 0 - 200 mg/dL AO ADM SS Comment on above: Interpretive Data: C holesterol Reference Interval: Less than 200 Desirable 200-239 Borderline high risk 240 and above High risk Cholesterol in HDL [Mass/Vol] 55 mg/dL Normal 40 - 60 mg/dL AO ADM SS Cholesterol in LDL [Mass/Vol] 85 mg/dL Normal 0 - 130 mg/dL AO ADM SS Triglyceride [Mass/Vol] 121 mg/dL Normal 0 - 150 mg/dL AO ADM SS Comment on above: Interpretive Data: T riglyceride Reference Interval: Less than 150 Normal 150-199 Borderline high risk 200-499 High risk 500 or higher Very high risk LIPIDon 02-19-2025 Cholesterol [Mass/Vol] 164 mg/dL Normal 0-200 [facility] Comment on above: Result Comment: Chol esterol Reference Interval: Less than 200 Desirable 200-239 Borderline high risk 240 and above High risk Performed By: #### C MP, VIDH, LIPID, GFR #### [address] [address] Cholesterol in HDL [Mass/Vol] 55 mg/dL Normal 40-60 [facility] Comment on above: Performed By: #### C MP, VIDH, LIPID, GFR #### [address] [place], [place] [address] Cholesterol in LDL [Mass/Vol] 85 mg/dL Normal 0-130 [facility] Comment on above: Performed By: #### C MP, VIDH, LIPID, GFR #### [address] [place], [place] [address] Triglyceride [Mass/Vol] 121 mg/dL Normal 0-150 [facility] Comment on above: Result Comment: Trig lyceride Reference Interval: Less than 150 Normal 150-199 Borderline high risk 200-499 High risk 500 or higher Very high risk Performed By: #### C MP, VIDH, LIPID, GFR #### [address] [place], [place] [address] VIDHon 02-19-2025 Vit. D 25-Hydroxy 33.9 ng/mL Normal [facility] Comment on above: Result Comment: Inte rpretive Values Based on Total 25(OH) Vitamin D: Deficient <20 ng/mL Insufficient 20 - <30 ng/mL Sufficient 30-100 ng/mL Performed By: #### C MP, VIDH, LIPID, GFR #### [address] [address] No Panel Informationon 11-06 Culture Urine >100,000 cfu/ml Mixed growth consistent with normal urogenital kunal. [facility] .GFRon 08-22-2024 GFR 80 ml/min/1.73sqm Normal [facility] Comment on above: Result Comment: GFR Population mean for , Non- Americans Ages 20-29 = 116 mL/min/1.73 sq.m. Ages 30-39 = 107 mL/min/1.73 sq.m. Ages 40-49 = 99 mL/min/1.73 sq.m. Ages 50-59 = 93 mL/min/1.73 sq.m. Ages 60-69 = 85 mL/min/1.73 sq.m. Ages 70+ = 75 mL/min/1.73 sq.m. Chronic Kidney Disease: Less than 60 mL/min/1.73 square meters End Stage Renal Disease: Less than 15 mL/min/1.73 square meters Performed By: #### C MP, A1C, LIPID, GFR #### [address] [place], [place] [address] GFR Non- 66 ml/min/1.73sqm Normal [facility] Comment on above: Result Comment: GFR Population mean for , Non- Americans Ages 20-29 = 116 mL/min/1.73 sq.m. Ages 30-39 = 107 mL/min/1.73 sq.m. Ages 40-49 = 99 mL/min/1.73 sq.m. Ages 50-59 = 93 mL/min/1.73 sq.m. Ages 60-69 = 85 mL/min/1.73 sq.m. Ages 70+ = 75 mL/min/1.73 sq.m. Chronic Kidney Disease: Less than 60 mL/min/1.73 square meters End Stage Renal Disease: Less than 15 mL/min/1.73 square meters Performed By: #### C MP, A1C, LIPID, GFR #### [address] [address] A1Con 08-22-2024 Glucose [Mass/Vol] 111 mg/dL Normal [facility] Comment on above: Result Comment: Marina mated Average Glucose calculated by equation ((28.7xA1C)-46.7) Estimated average glucose (eAG) is a calculated value from Hemoglobin A1C and is customer service representative of the average blood glucose level in the last 2-3 month period. Normal range: less than 114 mg/dL Performed By: #### C MP, A1C, LIPID, GFR #### [address] [address] HbA1c (Bld) [Mass fraction] 5.5 % Normal 4.3-6.4 [facility] Comment on above: Performed By: #### C MP, A1C, LIPID, GFR #### [address] [address] CMPon 08-22-2024 Albumin Level 3.7 G/dL Normal 3.5-5.0 [facility] Comment on above: Performed By: #### C MP, A1C, LIPID, GFR #### [address] [address] Albumin/Globulin [Mass ratio] 1.1 {ratio} Normal 1.1-2.5 [facility] Comment on above: Performed By: #### C MP, A1C, LIPID, GFR #### [address] [address] ALP [Catalytic activity/Vol] 106 U/L Normal 40-135 [facility] Comment on above: Performed By: #### C MP, A1C, LIPID, GFR #### [address] [address] ALT [Catalytic activity/Vol] 42 U/L Normal 14-59 [facility] Comment on above: Performed By: #### C MP, A1C, LIPID, GFR #### [address] [address] AST [Catalytic activity/Vol] 27 U/L Normal 10-40 [facility] Comment on above: Performed By: #### C MP, A1C, LIPID, GFR #### [address] [address] Bili Total 0.5 mg/dL Normal 0.2-1.0 [facility] Comment on above: Result Comment: Use of this assay is not recommended for patients undergoing treatment with eltrombopag due to the potential for falsely elevated results. Performed By: #### C MP, A1C, LIPID, GFR #### [address] [address] BUN/Creatinine Ratio 11 ratio Normal 7-27 [facility] Comment on above: Performed By: #### C MP, A1C, LIPID, GFR #### [address] [address] Calcium [Mass/Vol] 9.6 mg/dL Normal 8.4-10.2 [facility] Comment on above: Performed By: #### C MP, A1C, LIPID, GFR #### [address] [address] Chloride [Moles/Vol] 105 mmol/L Normal 98-107 [facility] Comment on above: Performed By: #### C MP, A1C, LIPID, GFR #### [address] [address] CO2 [Moles/Vol] 30 mmol/L High 22-29 [facility] Comment on above: Performed By: #### C MP, A1C, LIPID, GFR #### [address] [address] Creatinine [Mass/Vol] 0.90 mg/dL Normal 0.55-1.02 [facility] Comment on above: Result Comment: Test ing performed on [employer] Dimension EXL analyzer using a modified kinetic Isela technique. Performed By: #### C MP, A1C, LIPID, GFR #### [address] [address] Electrolyte Balance 6.0 mEq/L Normal 4.0-15.0 [facility] Comment on above: Performed By: #### C MP, A1C, LIPID, GFR #### [address] [address] Globulin 3.5 G/dL Normal [facility] Comment on above: Performed By: #### C MP, A1C, LIPID, GFR #### [address] [address] Glucose [Mass/Vol] 96 mg/dL Normal 70-105 [facility] Comment on above: Performed By: #### C MP, A1C, LIPID, GFR #### [address] [address] Potassium [Moles/Vol] 4.6 mmol/L Normal 3.5-5.1 [facility] Comment on above: Performed By: #### C MP, A1C, LIPID, GFR #### [address] [address] Sodium [Moles/Vol] 141 mmol/L Normal 136-145 [facility] Comment on above: Performed By: #### C MP, A1C, LIPID, GFR #### [address] [address] Total Protein 7.2 G/dL Normal 6.4-8.2 [facility] Comment on above: Performed By: #### C MP, A1C, LIPID, GFR #### [facility] [address] [place], [place] [address] Urea nitrogen [Mass/Vol] 10 mg/dL Normal 7-18 [facility] Comment on above: Performed By: #### C MP, A1C, LIPID, GFR #### [facility] [address] [place], [place] [address] LABORATORYOrdered By: SYSTEM SYSTEM on 08-22-2024 Albumin BCP dye [Mass/Vol] 3.7 G/dL Normal 3.5 - 5.0 G/dL AO ADM SS Albumin/Globulin [Mass ratio] 1.1 {ratio} Normal 1.1 - 2.5 ratio AO ADM SS ALP [Catalytic activity/Vol] 106 U/L Normal 40 - 135 U/L AO ADM SS ALT With P-5'-P [Catalytic activity/Vol] 42 U/L Normal 14 - 59 U/L AO ADM SS AST With P-5'-P [Catalytic activity/Vol] 27 U/L Normal 10 - 40 U/L AO ADM SS Bilirubin [Mass/Vol] 0.5 mg/dL Normal 0.2 - 1 .0 mg/dL AO ADM SS Comment on above: Interpretive Data: U se of this assay is not recommended for patients undergoing treatment with eltrombopag due to the potential for falsely elevated results. Calcium [Mass/Vol] 9.6 mg/dL Normal 8.4 - 10. 2 mg/dL AO ADM SS Chloride [Moles/Vol] 105 mmol/L Normal 98 - 10 7 mmol/L AO ADM SS CO2 [Moles/Vol] 30 mmol/L High 22 - 29 mmol/L AO ADM SS Creatinine [Mass/Vol] 0.90 mg/dL Normal 0.55 - 1.02 mg/dL AO ADM SS Comment on above: Interpretive Data: T esting performed on [employer] Dimension EXL analyzer using a modified kinetic Isela technique. Electrolyte Balance 6.0 mEq/L Normal 4.0 - 15 .0 mEq/L AO ADM SS GFR/1.73 sq M.predicted among blacks MDRD (S/P/Bld) [Vol rate/Area] 80 ml/min/1.73sqm Invalid Interpretation Code AO Chemistry S Comment on above: Interpretive Data: GFR Population mean for , Non- Americans Ages 20-29 = 116 mL/min/1.73 sq.m. Ages 30-39 = 107 mL/min/1.73 sq.m. Ages 40-49 = 99 mL/min/1.73 sq.m. Ages 50-59 = 93 mL/min/1.73 sq.m. Ages 60-69 = 85 mL/min/1.73 sq.m. Ages 70+ = 75 mL/min/1.73 sq.m. Chronic Kidney Disease: Less than 60 mL/min/1.73 square meters End Stage Renal Disease: Less than 15 mL/min/1.73 square meters GFR/1.73 sq M.predicted among non-blacks MDRD (S/P/Bld) [Vol rate/Area] 66 ml/min/1.73sqm Invalid Interpretation Code AO Chemistry S Comment on above: Interpretive Data: GFR Population mean for , Non- Americans Ages 20-29 = 116 mL/min/1.73 sq.m. Ages 30-39 = 107 mL/min/1.73 sq.m. Ages 40-49 = 99 mL/min/1.73 sq.m. Ages 50-59 = 93 mL/min/1.73 sq.m. Ages 60-69 = 85 mL/min/1.73 sq.m. Ages 70+ = 75 mL/min/1.73 sq.m. Chronic Kidney Disease: Less than 60 mL/min/1.73 square meters End Stage Renal Disease: Less than 15 mL/min/1.73 square meters Globulin 3.5 G/dL Invalid Interpretation Code AO ADM SS Glucose [Mass/Vol] 111 mg/dL Invalid Interpretation Code AO Chemistry S Comment on above: Interpretive Data: E stimated average glucose (eAG) is a calculated value from Hemoglobin A1C and is customer service representative of the average blood glucose level in the last 2-3 month period. Normal range: less than 114 mg/dL Glucose [Mass/Vol] 96 mg/dL Normal 70 - 105 mg/dL AO ADM SS HbA1c (Bld) [Mass fraction] 5.5 % Normal 4.3 - 6.4 % AO ADM SS Potassium [Moles/Vol] 4.6 mmol/L Normal 3.5 - 5.1 mmol/L AO ADM SS Protein [Mass/Vol] 7.2 G/dL Normal 6.4 - 8.2 G/dL AO ADM SS Sodium [Moles/Vol] 141 mmol/L Normal 136 - 145 mmol/L AO ADM SS Urea nitrogen [Mass/Vol] 10 mg/dL Normal 7 - 18 mg/dL AO ADM SS Urea nitrogen/Creatinine [Mass ratio] 11 ratio Normal 7 - 27 ratio AO ADM SS LABORATORYOrdered By: Sai Zamarripa on 08-22-2024 Cholesterol [Mass/Vol] 167 mg/dL Normal 0 - 200 mg/dL AO ADM SS Comment on above: Interpretive Data: C holesterol Reference Interval: Less than 200 Desirable 200-239 Borderline high risk 240 and above High risk Cholesterol in HDL [Mass/Vol] 63 mg/dL High 40 - 60 mg/dL AO ADM SS Cholesterol in LDL [Mass/Vol] 91 mg/dL Normal 0 - 130 mg/dL AO ADM SS Triglyceride [Mass/Vol] 66 mg/dL Normal 0 - 150 mg/dL AO ADM SS Comment on above: Interpretive Data: T riglyceride Reference Interval: Less than 150 Normal 150-199 Borderline high risk 200-499 High risk 500 or higher Very high risk LIPIDon 08-22-2024 Cholesterol [Mass/Vol] 167 mg/dL Normal 0-[address] [facility] Comment on above: Result Comment: Chol esterol Reference Interval: Less than 200 Desirable 200-239 Borderline high risk 240 and above High risk Performed By: #### C MP, A1C, LIPID, GFR #### [address] [address] Cholesterol in HDL [Mass/Vol] 63 mg/dL High 40-60 [facility] Comment on above: Performed By: #### C MP, A1C, LIPID, GFR #### [address] [place], [place] [address] Cholesterol in LDL [Mass/Vol] 91 mg/dL Normal 0-130 [facility] Comment on above: Performed By: #### C MP, A1C, LIPID, GFR #### [address] [address] Triglyceride [Mass/Vol] 66 mg/dL Normal 0-150 [facility] Comment on above: Result Comment: Trig lyceride Reference Interval: Less than 150 Normal 150-199 Borderline high risk 200-499 High risk 500 or higher Very high risk Performed By: #### C MP, A1C, LIPID, GFR #### [facility] [place] [address] [place], [place] [address] SCRN MAMM (CAD)W/SIRI BILATo n 05-22-2024 SCRN MAMM (CAD)W/SIRI BILAT [facility] [address] [place] [address] SCRN MAMM (CAD)W/SIRI BILAT MR#: [id number] Acct: [id number] Name: ELLIS EBRTRAND Rep #: [id number] : 1970 F 53 From: Damian cullen MD PCP: Rakesh Nina NP-C Status: [facility] Study: SCRN MAMM (CAD)W/SIRI BILAT Date of Exam: 05/12 10/04 Exam# [id number] Ordering Dr: Lalitha Mariscal NP PSYCHOLOGIST COUNSELING -C -[id number] MAMMOGRAPHY - BILATERAL SCREENING REASON FOR EXAM: Female, 53 years old. Routine annual screening examination. PERTINENT HISTORY: Non-contributory. TECHNIQUE: Digital bilateral breast siri (3D mammographic acquisition) in the CC and MLO projections. 2-D mediolateral oblique (MLO) and craniocaudad (CC) views of both breasts were obtained. CAD: Full Field Digital Mammography with Computer Added Detection was performed. COMPARISON: Comparison is made with prior study dated May 10, 2023 and May 09, 2022. FINDINGS: Breast Composition: The breasts are heterogeneously dense, which may obscure small masses. There are no dominant masses or suspicious calcifications. Stable bilateral fat containing axillary lymph nodes. No other significant abnormalities are identified. There has been no significant change since the prior study. BI/SCRN MAMM (CAD)W/SIRI BILAT IMPRESSION: Stable bilateral screening mammogram. Yearly follow-up mammogram recommended. (A) ASSESSMENT CATEGORY: BIRADS Category 2: Benign. A letter regarding these results will be sent to the patient by the facility within 30 days. Approximately 10% of breast cancers are not detected by mammography. A normal mammogram should not delay biopsy of a clinically suspicious abnormality. [id number] Electronically Signed: Damian Oliveira MD at 10:17 EDT , CC: VIVIEN Mariscal; VIVIEN Nina Retail Maintenance Technician: Signed Normal [facility] .GFRon 04-22-2024 GFR 93 ml/min/1.73sqm Normal [facility] ([place]) Comment on above: Result Comment: GFR Population mean for , Non- Americans Ages 20-29 = 116 mL/min/1.73 sq.m. Ages 30-39 = 107 mL/min/1.73 sq.m. Ages 40-49 = 99 mL/min/1.73 sq.m. Ages 50-59 = 93 mL/min/1.73 sq.m. Ages 60-69 = 85 mL/min/1.73 sq.m. Ages 70+ = 75 mL/min/1.73 sq.m. Chronic Kidney Disease: Less than 60 mL/min/1.73 square meters End Stage Renal Disease: Less than 15 mL/min/1.73 square meters Performed By: #### L IPID, CMP, GFR #### [facility] [address] [address] GFR Non- 76 ml/min/1.73sqm Normal [facility] ([place]) Comment on above: Result Comment: GFR Population mean for , Non- Americans Ages 20-29 = 116 mL/min/1.73 sq.m. Ages 30-39 = 107 mL/min/1.73 sq.m. Ages 40-49 = 99 mL/min/1.73 sq.m. Ages 50-59 = 93 mL/min/1.73 sq.m. Ages 60-69 = 85 mL/min/1.73 sq.m. Ages 70+ = 75 mL/min/1.73 sq.m. Chronic Kidney Disease: Less than 60 mL/min/1.73 square meters End Stage Renal Disease: Less than 15 mL/min/1.73 square meters Performed By: #### L IPID, CMP, GFR #### [address] [address] CMPon 04-22-2024 Albumin Level 3.6 G/dL Normal 3.5-5.0 Count includes the [facility] ([place]) Comment on above: Performed By: #### L IPID, CMP, GFR #### [address] [address] Albumin/Globulin [Mass ratio] 0.9 {ratio} Low 1.1-2.5 [facility] ([place]) Comment on above: Performed By: #### L IPID, CMP, GFR #### [address] [address] ALP [Catalytic activity/Vol] 108 U/L Normal 40-135 [facility] ([place]) Comment on above: Performed By: #### L IPID, CMP, GFR #### [address] [address] ALT [Catalytic activity/Vol] 38 U/L Normal 14-59 [facility] ([place]) Comment on above: Performed By: #### L IPID, CMP, GFR #### [address] [address] AST [Catalytic activity/Vol] 24 U/L Normal 10-40 [facility] ([place]) Comment on above: Performed By: #### L IPID, CMP, GFR #### [address] [address] Bili Total 0.4 mg/dL Normal 0.2-1.0 [facility] ([place]) Comment on above: Result Comment: Use of this assay is not recommended for patients undergoing treatment with eltrombopag due to the potential for falsely elevated results. Performed By: #### L IPID, CMP, GFR #### [address] [address] BUN/Creatinine Ratio 10 ratio Normal 7-27 [facility] ([place]) Comment on above: Performed By: #### L IPID, CMP, GFR #### [address] [address] Calcium [Mass/Vol] 9.4 mg/dL Normal 8.4-10.2 [facility] ([place]) Comment on above: Performed By: #### L IPID, CMP, GFR #### [address] [address] Chloride [Moles/Vol] 106 mmol/L Normal 98-107 [facility] ([place]) Comment on above: Performed By: #### L IPID, CMP, GFR #### [address] [address] CO2 [Moles/Vol] 32 mmol/L High 22-29 [facility] ([place]) Comment on above: Performed By: #### L IPID, CMP, GFR #### [address] [address] Creatinine [Mass/Vol] 0.79 mg/dL Normal 0.55-1.02 [facility] ([place]) Comment on above: Performed By: #### L IPID, CMP, GFR #### [address] [address] Electrolyte Balance 6.0 mEq/L Normal 4.0-15.0 [facility] ([place]) Comment on above: Performed By: #### L IPID, CMP, GFR #### [address] [address] Globulin 3.8 G/dL Normal [facility] ([place]) Comment on above: Performed By: #### L IPID, CMP, GFR #### [address] [address] Glucose [Mass/Vol] 86 mg/dL Normal 70-105 [facility] ([place]) Comment on above: Performed By: #### L IPID, CMP, GFR #### [address] [address] Potassium [Moles/Vol] 4.7 mmol/L Normal 3.5-5.1 [facility] ([place]) Comment on above: Performed By: #### L IPID, CMP, GFR #### [address] [address] Sodium [Moles/Vol] 144 mmol/L Normal 136-145 [facility] ([place]) Comment on above: Performed By: #### L IPID, CMP, GFR #### [address] [address] Total Protein 7.4 G/dL Normal 6.4-8.2 Count includes the [facility] ([place]) Comment on above: Performed By: #### L IPID, CMP, GFR #### [address] [address] Urea nitrogen [Mass/Vol] 8 mg/dL Normal 7-18 [facility] ([place]) Comment on above: Performed By: #### L IPID, CMP, GFR #### [address] [address] LABORATORYOrdered By: SYSTEM SYSTEM on 04-22-2024 Albumin BCP dye [Mass/Vol] 3.6 G/dL Normal 3.5 - 5.0 G/dL AO ADM SS Albumin/Globulin [Mass ratio] 0.9 {ratio} Low 1.1 - 2.5 ratio AO ADM SS ALP [Catalytic activity/Vol] 108 U/L Normal 40 - 135 U/L AO ADM SS ALT With P-5'-P [Catalytic activity/Vol] 38 U/L Normal 14 - 59 U/L AO ADM SS AST With P-5'-P [Catalytic activity/Vol] 24 U/L Normal 10 - 40 U/L AO ADM SS Bilirubin [Mass/Vol] 0.4 mg/dL Normal 0.2 - 1 .0 mg/dL AO ADM SS Comment on above: Interpretive Data: U se of this assay is not recommended for patients undergoing treatment with eltrombopag due to the potential for falsely elevated results. Calcium [Mass/Vol] 9.4 mg/dL Normal 8.4 - 10. 2 mg/dL AO ADM SS Chloride [Moles/Vol] 106 mmol/L Normal 98 - 10 7 mmol/L AO ADM SS CO2 [Moles/Vol] 32 mmol/L High 22 - 29 mmol/L AO ADM SS Creatinine [Mass/Vol] 0.79 mg/dL Normal 0.55 - 1.02 mg/dL AO ADM SS Electrolyte Balance 6.0 mEq/L Normal 4.0 - 15 .0 mEq/L AO ADM SS GFR/1.73 sq M.predicted among blacks MDRD (S/P/Bld) [Vol rate/Area] 93 ml/min/1.73sqm Invalid Interpretation Code AO Chemistry S Comment on above: Interpretive Data: GFR Population mean for , Non- Americans Ages 20-29 = 116 mL/min/1.73 sq.m. Ages 30-39 = 107 mL/min/1.73 sq.m. Ages 40-49 = 99 mL/min/1.73 sq.m. Ages 50-59 = 93 mL/min/1.73 sq.m. Ages 60-69 = 85 mL/min/1.73 sq.m. Ages 70+ = 75 mL/min/1.73 sq.m. Chronic Kidney Disease: Less than 60 mL/min/1.73 square meters End Stage Renal Disease: Less than 15 mL/min/1.73 square meters GFR/1.73 sq M.predicted among non-blacks MDRD (S/P/Bld) [Vol rate/Area] 76 ml/min/1.73sqm Invalid Interpretation Code AO Chemistry S Comment on above: Interpretive Data: GFR Population mean for , Non- Americans Ages 20-29 = 116 mL/min/1.73 sq.m. Ages 30-39 = 107 mL/min/1.73 sq.m. Ages 40-49 = 99 mL/min/1.73 sq.m. Ages 50-59 = 93 mL/min/1.73 sq.m. Ages 60-69 = 85 mL/min/1.73 sq.m. Ages 70+ = 75 mL/min/1.73 sq.m. Chronic Kidney Disease: Less than 60 mL/min/1.73 square meters End Stage Renal Disease: Less than 15 mL/min/1.73 square meters Globulin 3.8 G/dL Invalid Interpretation Code AO ADM SS Glucose [Mass/Vol] 86 mg/dL Normal 70 - 105 mg/dL AO ADM SS Potassium [Moles/Vol] 4.7 mmol/L Normal 3.5 - 5.1 mmol/L AO ADM SS Protein [Mass/Vol] 7.4 G/dL Normal 6.4 - 8.2 G/dL AO ADM SS Sodium [Moles/Vol] 144 mmol/L Normal 136 - 145 mmol/L AO ADM SS Urea nitrogen [Mass/Vol] 8 mg/dL Normal 7 - 18 mg/dL AO ADM SS Urea nitrogen/Creatinine [Mass ratio] 10 ratio Normal 7 - 27 ratio AO ADM SS LABORATORYOrdered By: Greg Kohli on 04-22-2024 Cholesterol [Mass/Vol] 163 mg/dL Normal 0 - 200 mg/dL AO ADM SS Comment on above: Interpretive Data: C holesterol Reference Interval: Less than 200 Desirable 200-239 Borderline high risk 240 and above High risk Cholesterol in HDL [Mass/Vol] 60 mg/dL Normal 40 - 60 mg/dL AO ADM SS Cholesterol in LDL [Mass/Vol] 81 mg/dL Normal 0 - 130 mg/dL AO ADM SS Triglyceride [Mass/Vol] 110 mg/dL Normal 0 - 150 mg/dL AO ADM SS Comment on above: Interpretive Data: T riglyceride Reference Interval: Less than 150 Normal 150-199 Borderline high risk 200-499 High risk 500 or higher Very high risk LIPIDon 04-22-2024 Cholesterol [Mass/Vol] 163 mg/dL Normal 0-200 [facility] ([place]) Comment on above: Result Comment: Chol esterol Reference Interval: Less than 200 Desirable 200-239 Borderline high risk 240 and above High risk Performed By: #### L IPID, CMP, GFR #### [facility] [address] [address] Cholesterol in HDL [Mass/Vol] 60 mg/dL Normal 40-60 [facility] ([place]) Comment on above: Performed By: #### L IPID, CMP, GFR #### [address] [place], [place] [address] Cholesterol in LDL [Mass/Vol] 81 mg/dL Normal 0-130 [facility] ([place]) Comment on above: Performed By: #### L IPID, CMP, GFR #### [facility] [place] [address] [place], [place] [address] Triglyceride [Mass/Vol] 110 mg/dL Normal 0-150 [facility] ([place]) Comment on above: Result Comment: Trig lyceride Reference Interval: Less than 150 Normal 150-199 Borderline high risk 200-499 High risk 500 or higher Very high risk Performed By: #### L IPID, CMP, GFR #### [address] [place], [place] [address] .GFRon 08-26-2023 GFR 90 ml/min/1.73sqm Normal [facility] ([place]) Comment on above: Result Comment: GFR Population mean for , Non- Americans Ages 20-29 = 116 mL/min/1.73 sq.m. Ages 30-39 = 107 mL/min/1.73 sq.m. Ages 40-49 = 99 mL/min/1.73 sq.m. Ages 50-59 = 93 mL/min/1.73 sq.m. Ages 60-69 = 85 mL/min/1.73 sq.m. Ages 70+ = 75 mL/min/1.73 sq.m. Chronic Kidney Disease: Less than 60 mL/min/1.73 square meters End Stage Renal Disease: Less than 15 mL/min/1.73 square meters Performed By: #### G FR, CMP, LIPID, A1C #### [address] [place], [place] [address] GFR Non- 75 ml/min/1.73sqm Normal [facility] ([place]) Comment on above: Result Comment: GFR Population mean for , Non- Americans Ages 20-29 = 116 mL/min/1.73 sq.m. Ages 30-39 = 107 mL/min/1.73 sq.m. Ages 40-49 = 99 mL/min/1.73 sq.m. Ages 50-59 = 93 mL/min/1.73 sq.m. Ages 60-69 = 85 mL/min/1.73 sq.m. Ages 70+ = 75 mL/min/1.73 sq.m. Chronic Kidney Disease: Less than 60 mL/min/1.73 square meters End Stage Renal Disease: Less than 15 mL/min/1.73 square meters Performed By: #### G FR, CMP, LIPID, A1C #### [address] [address] A1Con 08-26-2023 HbA1c (Bld) [Mass fraction] 5.5 % Normal 4.3-6.4 [facility] ([place]) Comment on above: Performed By: #### G FR, CMP, LIPID, A1C #### [address] [address] CMPon 08-26-2023 Albumin Level 3.4 G/dL Low 3.5-5.0 Count includes the [facility] ([place]) Comment on above: Performed By: #### G FR, CMP, LIPID, A1C #### [address] [address] Albumin/Globulin [Mass ratio] 0.9 {ratio} Low 1.1-2.5 [facility] ([place]) Comment on above: Performed By: #### G FR, CMP, LIPID, A1C #### [address] [address] ALP [Catalytic activity/Vol] 103 U/L Normal 40-135 [facility] ([place]) Comment on above: Performed By: #### G FR, CMP, LIPID, A1C #### [address] [address] ALT [Catalytic activity/Vol] 33 U/L Normal 14-59 [facility] ([place]) Comment on above: Performed By: #### G FR, CMP, LIPID, A1C #### [address] [address] AST [Catalytic activity/Vol] 20 U/L Normal 10-40 [facility] ([place]) Comment on above: Performed By: #### G FR, CMP, LIPID, A1C #### [address] [address] Bili Total 0.4 mg/dL Normal 0.2-1.0 [facility] ([place]) Comment on above: Result Comment: Use of this assay is not recommended for patients undergoing treatment with eltrombopag due to the potential for falsely elevated results. Performed By: #### G FR, CMP, LIPID, A1C #### [address] [address] BUN/Creatinine Ratio 14 ratio Normal 7-27 [facility] ([place]) Comment on above: Performed By: #### G FR, CMP, LIPID, A1C #### [address] [address] Calcium [Mass/Vol] 9.2 mg/dL Normal 8.4-10.2 [facility] ([place]) Comment on above: Performed By: #### G FR, CMP, LIPID, A1C #### [address] [address] Chloride [Moles/Vol] 106 mmol/L Normal 98-107 [facility] ([place]) Comment on above: Performed By: #### G FR, CMP, LIPID, A1C #### [address] [address] CO2 [Moles/Vol] 30 mmol/L High 22-29 [facility] ([place]) Comment on above: Performed By: #### G FR, CMP, LIPID, A1C #### [address] [address] Creatinine [Mass/Vol] 0.81 mg/dL Normal 0.55-1.02 [facility] ([place]) Comment on above: Performed By: #### G FR, CMP, LIPID, A1C #### [address] [address] Electrolyte Balance 9.0 mEq/L Normal 4.0-15.0 [facility] ([place]) Comment on above: Performed By: #### G FR, CMP, LIPID, A1C #### [address] [address] Globulin 3.9 G/dL Normal [facility] ([place]) Comment on above: Performed By: #### G FR, CMP, LIPID, A1C #### [address] [address] Glucose [Mass/Vol] 88 mg/dL Normal 70-105 [facility] ([place]) Comment on above: Performed By: #### G FR, CMP, LIPID, A1C #### [address] [address] Potassium [Moles/Vol] 4.5 mmol/L Normal 3.5-5.1 [facility] ([place]) Comment on above: Performed By: #### G FR, CMP, LIPID, A1C #### [address] [address] Sodium [Moles/Vol] 145 mmol/L Normal 136-145 [facility] ([place]) Comment on above: Performed By: #### G FR, CMP, LIPID, A1C #### [address] [address] Total Protein 7.3 G/dL Normal 6.4-8.2 Count includes the [facility] ([place]) Comment on above: Performed By: #### G FR, CMP, LIPID, A1C #### [address] [address] Urea nitrogen [Mass/Vol] 11 mg/dL Normal 7-18 [facility] ([place]) Comment on above: Performed By: #### G FR, CMP, LIPID, A1C #### [address] [address] LIPIDon 08-26-2023 Cholesterol [Mass/Vol] 236 mg/dL High 0-200 [facility] ([place]) Comment on above: Result Comment: Chol esterol Reference Interval: Less than 200 Desirable 200-239 Borderline high risk 240 and above High risk Performed By: #### G FR, CMP, LIPID, A1C #### [address] [address] Cholesterol in HDL [Mass/Vol] 61 mg/dL High 40-60 [facility] ([place]) Comment on above: Performed By: #### G FR, CMP, LIPID, A1C #### [address] [place], [place] [address] Cholesterol in LDL [Mass/Vol] 155 mg/dL High 0-130 [facility] ([place]) Comment on above: Performed By: #### G FR, CMP, LIPID, A1C #### [facility] [address] [place], [place] [address] Triglyceride [Mass/Vol] 98 mg/dL Normal 0-150 [facility] ([place]) Comment on above: Result Comment: Trig lyceride Reference Interval: Less than 150 Normal 150-199 Borderline high risk 200-499 High risk 500 or higher Very high risk Performed By: #### G FR, CMP, LIPID, A1C #### [facility] [address] [place], [place] [address] Throat specimen bacteria tyrone ntification by cultureOrdered By: Dr. Rivera on 02-28-2023 Bacteria identified Cx Nom (Throat) streptococcus isolated. [facility] Throat specimen bacteria tyrone ntification by cultureOrdered By: Naeem Rivera on 02-25-2023 Bacteria identified Cx Nom (Throat) streptococcus isolated. [facility] Basophil percentageon 2021 Cholesterol [Mass/Vol] 227 mg/dL <200 [facility] Work Phone: Comment on above: <200 mg/dL Desirable 200-240 mg/dL Borderline >240 mg/dL High Risk Glucose [Mass/Vol] 87 mg/dL 74-106 [facility] Work Phone: Triglyceride [Mass/Vol] 150 mg/dL <199 [facility] Work Phone: Comment on above: The drugs N-Acetylcy steine and Metamizole may falsely depress this assay.Serum Triglycerides Reference Interval Normal <150 mg/dL Borderline high 150 - 199 mg/dL High 200 - 499 mg/dL Very High > or = 500 mg/dL No Panel Informationon 05-09 Thyroid Stimulating Hormone (TSH) 1.73 uIU/mL 0.358-3.74 [facility] Work Phone: Vitamin D 25-Hydroxy 38.8 ng/mL [facility] Work Phone: Comment on above: Vitamin D 25(OH) Sta tus Range Deficiency <20 ng/mL (50nmol/L) Insufficiency 20 - 30 ng/mL (50 - 75 nmol/L) Sufficiency 30 - 100 ng/mL (75 - 250 nmol/L) Toxicity >100 ng/mL (>250 nmol/L) Serum or plasma cholesterol in HDL measurement (mass/volume)on 05-09-2022 Cholesterol in HDL [Mass/Vol] 64 mg/dL >40 [facility] Work Phone: Comment on above: The drugs N-Acetylcy steine and Metamizole may falsely depress this assay. Reference Range HDL <40 mg/dL Low HDL Cholesterol HDL >or= 60 mg/dL High HDL Cholesterol Serum or plasma cholesterol in VLDL measurement (mass/volume)on 05-09-2022 Cholesterol in VLDL [Mass/Vol] 30 mg/dL 5-40 [facility] Work Phone: Serum or plasma low density lipoprotein (LDL) cholesterol measurement (mass/volume)on 05-09-2022 Cholesterol in LDL [Mass/Vol] 133 mg/dL 0-130 [facility] Work Phone: Vital Signs Date Time Vital Sign Value Performing Clinician Madison hilario 05-21-2025 13:12-0400 Body height 154.94 cm Rakesh Nina PSYCHOLOGIST COUNSELING-C Work Phone: [facility] 05-21-2025 13:08-0400 Body mass index (BMI) [Ratio] 28.6 kg/m2 Rakesh Nina PSYCHOLOGIST COUNSELING-C Work Phone: [facility] 05-21-2025 13:08-0400 Body weight 68.74 kg Rakesh Nina PSYCHOLOGIST COUNSELING-C Work Phone: [facility] 05-21-2025 13:08-0400 Diastolic blood pressure 76 mm[Hg] Rakesh Nina PSYCHOLOGIST COUNSELING-C Work Phone: [facility] 05-21-2025 13:08-0400 Systolic blood pressure 118 mm[Hg] Rakesh Nina PSYCHOLOGIST COUNSELING-C Work Phone: [facility] 05-08-2023 08:20-0400 Body height 154.94 cm PSYCHOLOGIST COUNSELING-C Rakesh Kelle PSYCHOLOGIST COUNSELING Work Phone: [facility] 05-08-2023 08:16-0400 Body mass index (BMI) [Ratio] 29.2 kg/m2 PSYCHOLOGIST COUNSELING-C Rakesh Nina PSYCHOLOGIST COUNSELING Work Phone: [facility] 05-08-2023 08:16-0400 Body weight 70.3 kg PSYCHOLOGIST COUNSELING-C Rakesh Nina PSYCHOLOGIST COUNSELING Work Phone: [facility] 05-08-2023 08:16-0400 Diastolic blood pressure 84 mm[Hg] PSYCHOLOGIST COUNSELING-C Rakesh Nina PSYCHOLOGIST COUNSELING Work Phone: [facility] 05-08-2023 08:16-0400 Systolic blood pressure 122 mm[Hg] PSYCHOLOGIST COUNSELING-C Rakesh Nina PSYCHOLOGIST COUNSELING Work Phone: [facility] 05-04-2022 08:10-0400 Body height 154.94 cm PSYCHOLOGIST COUNSELING-C Rakesh Nina PSYCHOLOGIST COUNSELING Work Phone: [facility] Work Phone: 05-04-2022 08:10-0400 Body mass index (BMI) [Ratio] 28.7 kg/m2 PSYCHOLOGIST COUNSELING-C Rakesh Nina PSYCHOLOGIST COUNSELING Work Phone: [facility] Work Phone: 05-04-2022 08:10-0400 Body weight 69 kg PSYCHOLOGIST COUNSELING-C Rakesh Kelle PSYCHOLOGIST COUNSELING Work Phone: [facility] Work Phone: 05-04-2022 08:10-0400 Diastolic blood pressure 70 mm[Hg] PSYCHOLOGIST COUNSELING-C Rakesh Holcombkins PSYCHOLOGIST COUNSELING Work Phone: [facility] Work Phone: 05-04-2022 08:10-0400 Systolic blood pressure 118 mm[Hg] PSYCHOLOGIST COUNSELING-C Rakesh Nina PSYCHOLOGIST COUNSELING Work Phone: [facility] Work Phone: Encounters Encounter Date Encounter Type Care Provider Facility Start: 05-23-2025 ambulatory Lalitha Mariscal NP Facil ity:[facility] Start: 05-21-2025 End: 05-21-2025 Patient encounter procedure Tia Cardoza PSYCHOLOGIST COUNSELING-C -[facility] Work Phone: Start: 05-21-2025 End: 05-21-2025 Patient encounter status Tia Cardoza NP-C [facility] Start: 05-21-2025 End: 05-21-2025 ambulatory Rakesh Nina PSYCHOLOGIST COUNSELING-C Work Phone: -[facility] Start: 02-19-2025 End: 02-19-2025 ambulatory RAKESH NINA FINANCIAL RECRUITER - MANAGER OF PRODUCT Facility:[facility] Start: 02-19-2025 End: 02-19-2025 Patient encounter procedure RAKESH NINA FINANCIAL RECRUITER - MANAGER OF PRODUCT [facility] Start: 11-06-2024 End: 11-10-2024 ambulatory SARAH BERRY Facility:[facility] Start: 11-06-2024 End: 11-10-2024 Outreach Lab SARAH BERRY FINANCIAL RECRUITER-MANAGER OF PRODUCT [facility] Start: 08-22-2024 End: 08-22-2024 ambulatory RAKESH NINA FINANCIAL RECRUITER - MANAGER OF PRODUCT Facility:[facility] Start: 08-22-2024 End: 08-22-2024 Patient encounter procedure RAKESH NINA FINANCIAL RECRUITER - MANAGER OF PRODUCT [facility] Start: 05-22-2024 End: 05-22-2024 ambulatory Rakesh Nina PSYCHOLOGIST COUNSELING Facility:[facility] Start: 04-22-2024 End: 04-22-2024 ambulatory RAKESH NINA FINANCIAL RECRUITER - MANAGER OF PRODUCT Facility:[facility] Start: 04-22-2024 End: 04-22-2024 Patient encounter procedure RAKESH NINA FINANCIAL RECRUITER - MANAGER OF PRODUCT [facility] Start: 08-26-2023 End: 08-26-2023 ambulatory RAKESH NINA FINANCIAL RECRUITER - MANAGER OF PRODUCT Facility:[facility] Start: 05-10-2023 End: 05-10-2023 ambulatory PSYCHOLOGIST COUNSELING-C Rakesh Nina PSYCHOLOGIST COUNSELING Work Phone: [facility] Work Phone: Start: 05-10-2023 End: 05-10-2023 Patient encounter procedure PSYCHOLOGIST COUNSELING-C Rakesh Nina PSYCHOLOGIST COUNSELING Work Phone: [facility] Work Phone: Start: 05-08-2023 End: 05-08-2023 Patient encounter procedure PSYCHOLOGIST COUNSELING-Jeff Nina PSYCHOLOGIST COUNSELING Work Phone: [facility] Work Phone: Start: 02-25-2023 End: 02-25-2023 ambulatory [facility] Work Phone: Start: 02-25-2023 End: 02-25-2023 Patient encounter procedure [facility]-Laboratory, Specimen Start: 05-09-2022 End: 05-09-2022 ambulatory PSYCHOLOGIST COUNSELING-C Rakesh Nina PSYCHOLOGIST COUNSELING Work Phone: [facility] Work Phone: Start: 05-09-2022 End: 05-09-2022 Patient encounter procedure PSYCHOLOGIST COUNSELING-C Rakesh Nina PSYCHOLOGIST COUNSELING Work Phone: [facility] Start: 05-04-2022 End: 05-04-2022 Patient encounter procedure PSYCHOLOGIST COUNSELING-C Rakesh Nina PSYCHOLOGIST COUNSELING Work Phone: [facility] Procedures Date Procedure Procedure Detail Performing Clinician Start: 05-10-2023 Screening mammography N P-C Rakesh Nina PSYCHOLOGIST COUNSELING Work Phone: Start: 02-25-2023 Bacteria identificat ion test PSYCHOLOGIST COUNSELING-C Rakesh Nina PSYCHOLOGIST COUNSELING Work Phone: Start: 05-09-2022 Screening mammography N P-C Rakesh Nina PSYCHOLOGIST COUNSELING Work Phone: Bacteria identificat ion test Plan of Treatment Date Care Activity Detail Author Lipid 1995 panel - Serum or Plasma [facility] Liquid based cervical cytology screening [facility] Payers Date Payer Category Payer Private Health Insurance [id number] 2024 Unknown [id number] 2024 Self-pay [id number] 2023 Unknown [id number] 1969 Unknown [id number] 1969 Unknown [id number] 1969 Unknown [id number] 1969 Unknown [id number] 1969 Unknown [id number] Unknown [facility] [id number] Unknown [id number] Unknown [id number] Unknown [id number] Unknown [id number] Social History Date Type Detail Facility Start: 05-04-2022 End: 05-08-2023 Tobacco smoking status NHIS Unknown if ever smoked [facility] Start: 1970 Sex Assigned At Female [facility] Start: 05-08-2023 End: 10-30-2023 Tobacco smoking status Never smoked tobacco (finding) [facility] Sexual Orientation [facility] Start: 03-06-2019 Sex Female (finding) [facility] Clinical Notes 11-07-2024 Laboratory Note Date & Type Note Facility 11-07-2024 Note . MICRO - Microbiology PROCEDURE: Urine Culture [*1] SOURCE: Urine, Clean Catch BODY SITE: COLLECTED DATE/TIME: 11/06/2024 13:19 EST RECEIVED DATE/TIME: 11/06/2024 18:58 EST START DATE/TIME: 11/06/2024 18:58 EST FREE TEXT SOURCE: FINAL REPORTS Final Report [] Verified Date/Time/Personnel: 11/07/2024 15:02 EST >100,000 cfu/ml Mixed growth consistent with normal urogenital kunal. Performing Locations *1: This test was performed at: [facility], [address] [place] [address], [address] [place] [address] Evaluation + Plan note Future Appointments Appointment Date:04/29/2024 07:00:00 AM Scheduled Provider:RAKESH NINA APRN, CNP Location:[facility] Appointment Type:PC OV Follow Up Appointment Date:08/26/2024 08:00:00 AM Scheduled Provider:RAKESH NINA APRN, CNP Location:[facility] Appointment Type:PC Wellness [facility] Evaluation + Plan note Future Appointments Appointment Date:08/26/2024 08:00:00 AM Scheduled Provider:RAKESH NINA APRN, CNP Location:[facility] Appointment Type:PC Wellness [facility] Evaluation + Plan note Future Appointments Appointment Date:02/24/2025 08:00:00 AM Scheduled Provider:RAKESH NINA APRN, CNP Location:[facility] Appointment Type:PC OV Follow Up Future Scheduled TestsLipid Profile 02/24/25Vitamin D Level 02/24/25Complete Metabolic Panel 02/24/25 [facility] Evaluation + Plan note Future Appointments Appointment Date:02/24/2025 08:00:00 AM Scheduled Provider:RAKESH NINA APRN - JEAN-PIERRE Location:[facility] [place] Appointment Type:PC OV Follow Up [facility] Evaluation note Diagnosis Onset Date Encounter for routine gyneco logical examination noneactive [facility] Work Phone: Evaluation noteNo assessment information available [facility] Work Phone: Evaluation note* Diagnosis Onset Date Resolution Status Elevated cholesterol acute Encounter for routine gynecological examination noneactive [facility] Work Phone: Evaluation note* Diagnosis Onset Date Resolution Status Admit Date Encounter for routine gynecological examination noneactive 2024 1:17pm [facility] Work Phone: Hospital course Narrative No data available for this section [facility] Hospital Discharge instructions No data available for this section [facility] Progress note No data available for this section 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 Reason for Visit Elevated cholesterol Encounter for routine gynecological examination Chief Complaint Admit Date Annual (HOUSE NURSE) May 21, 2025 1:17pm Reason for Visit Admit Date Encounter for routine gynecological exam ination May 21, 2025 1:17pm Family History No Family History Records Found Relationship Condition Age at Onset Recorded Date/T julien grandmother Malignant neoplasm of colon Unknown grandfather Cardiac disease Unknown Not Specified Hypertension Unknown Relationship Condition Age at Onset Recorded Date/T julien grandmother Malignant neoplasm of colon Unknown grandfather Cardiac disease Unknown unrelated friend Hypertension Unknown Advance Directives No Advanced Directives Records Found Advance Directive Response Recorded Date/ Time Living Will No September 30 10:00am Power of [place] [employer] No September 30, 2021 10:00am Summary Purpose Additional Source Comments Goals (unrecognized section and content) Goals may be documented in a n alternate sectionGoals may be documented in an alternate sectionGoals may be documented in an alternate section No data available for this section No data available for this section No data available for this section No data available for this sectionGoals may be documented in an alternate section Care Teams (unrecognized sec tion and content) Team Status: Active Member Role Status Dates Dr. Jame Strong , Family Provider Active Rakesh Nina PSYCHOLOGIST COUNSELING, PSYCHOLOGIST COUNSELING-C Primary Care Provider Active Team Status: Inactive Member Role Status Dates Rakesh Nina PSYCHOLOGIST COUNSELING, PSYCHOLOGIST COUNSELING-C Primary Care Provider Active Dr. Naeem Rivera MD Attending Provider Active Team Status: Inactive Member Role Status Dates Rakesh Nina PSYCHOLOGIST COUNSELING, PSYCHOLOGIST COUNSELING-C Primary Care Provider, Referring Provider Active Lalitha Mariscal NP, PSYCHOLOGIST COUNSELING-C Attending Provider Active Team Status: Inactive Member Role Status Dates Rakesh Nina PSYCHOLOGIST COUNSELING, PSYCHOLOGIST COUNSELING-C Primary Care Provider Active Lalitha Mariscal NP, PSYCHOLOGIST COUNSELING-C Attending Provider, Referring Provider Active Team Status: Active Member Role/Relationship Status Dates Rakesh Nina PSYCHOLOGIST COUNSELING, PSYCHOLOGIST COUNSELING-C Primary Care Provider Active Team Status: Inactive Member Role/Relationship Status Dates Rakesh Nina NP, PSYCHOLOGIST COUNSELING-C Primary Care Provider Active Start: May 122024 End: May 21, 2025 Rakesh Nina NP, PSYCHOLOGIST COUNSELING-C Referring Provider Active Start: May End: May 21, 2025 Tia aCrdoza NP-C Attending Provider Active Start: May 21, 2025 End: May 21, 2025 INFORMATION SOURCE (unrecogn ized section and content) DATE CREATED AUTHOR 04/23/2024 [facility] ([place]) DATE CREATED AUTHOR AUTHOR'S ORGANIZ ATION 02/21/2025 [facility] DATE CREATED AUTHOR AUTHOR'S ORGANIZ ATION 05/21/2025 [facility] FOR RECORDS PERTAINING TO PATIENTS WHO ARE OR HAVE BEEN ENROLLED IN A CHEMICAL DEPENDENCY/SUBSTANCEABUSE PROGRAM, SOME INFORMATION MAY BE OMITTED. This clinical summary was aggregated from multiple sources. Caution should be exercised in using it in the provision of clinical care. This summary normalizes information from multiple sources, and as a consequence, information in this document may materially change the coding, format and clinical context of patient data. In addition, data may be omitted in some cases. CLINICAL DECISIONS SHOULD BE BASED ON THE PRIMARY CLINICAL RECORDS. [facility] [employer] provides no warranty or guarantee of the accuracy or completeness of information in this document.
--- NOTE | 2025-05-23 07:15 | BI_ITS ---
EXAM: SCRN MAMM (CAD)W/SIRI BILAT DATE: 05/23/2025 CLINICAL HISTORY: F, Age 54 y/o , SCREEN FOR BREAST CANCER TECHNIQUE: Procedure Code: [id number] Modality: MG Procedure: SCRN MAMM (CAD)W/SIRI BILAT COMPARISON: Prior exam(s) dated 05/22/2024, 04/30/2023, 05/09/2022. FINDINGS: TISSUE DENSITY: The breasts are heterogeneously dense, which may obscure small masses. The mammogram demonstrates that the patient has dense breasts. Supplemental screening with whole breast ultrasound or MRI may be considered for further evaluation. Bilateral Breast Mammographic Findings: No significant masses, calcifications or other abnormalities are identified. BI/SCRN MAMM (CAD)W/SIRI BILAT IMPRESSION: There is no mammographic evidence of malignancy. OVERALL FINAL ASSESSMENT BI-RADS 1: NEGATIVE. RECOMMENDATION: Routine annual follow-up in 1 Year A letter with findings and recommendations will be mailed to the patient. Reading Location: [id number]
== END | disposition home or self-care (01) ==
LOC: OPBI 07:00
PROVIDERS: PCP Nurse Practitioner Family; Referring Provider Nurse Practitioner Women's Health; Visit Provider Nurse Practitioner Women's Health
DX: Z12.31 Encounter for screening mammogram for malignant neoplasm of breast (principal)
CPT/HCPCS: 77063; 77067